=== PATIENT | male | born 1960 | race Caucasian/White ===

== ENCOUNTER → 2017-10-31 16:12 | Outpatient (CLI) | payer SELFPAY ==
[2017-10-31 17:26] LABS: Add Manual Diff / Slide Review NO; Basophils Percent Auto 0.5 % (0-2); Eosinophils Percent Auto 2.6 % (2-4); Hematocrit 40.1 % (41-53); Hemoglobin 13.7 g/dL (13.5-17.5); Lymphocytes Percent Auto 32.1 % (25-40); Mean Corpuscular HGB Conc 34.2 % (30-36); Mean Corpuscular Volume 96.5 fL (80-100); Monocytes Percent Auto 7.4 % (3-14); Neutrophils Absolute Auto 5000 /uL (3000-5900); Neutrophils Percent Auto 57.4 % (50-75); Platelet Count 231 X10^3/uL (150-400); Red Blood Cell Count 4.15 X10^6/uL (4.5-5.9); Red Cell Distribution Width 13.1 % (11.6-14.8); White Blood Cell Count 8.7 X10^3/uL (4.5-11.0)
[2017-10-31 17:34] LABS: HEMOLYSIS < 15 (0-50); Iron 106 ug/dL (49-181)
[2017-10-31 17:36] LABS: Alanine Aminotransferase 29 IU/L (21-72); Albumin 4.7 g/dL (3.5-5.0); Albumin Globulin Ratio 1.6 (1.0-2.8); Alkaline Phosphatase 78 U/L (38-126); Aspartate Aminotransferase 21 IU/L (17-59); BUN Creatinine Ratio 11.1 (6-22); Bilirubin Total 0.4 mg/dL (0.2-1.3); Blood Urea Nitrogen 10 mg/dL (9-20); Calcium 9.9 mg/dL (8.4-10.2); Carbon Dioxide 29 mmol/L (22-32); Chloride 101 mmol/L (98-107); Cholesterol 133 mg/dL (140-199); Estimated Glomerular Filt Rate > 60.0 mL/min (>60); Globulin 2.9 g/dL (1.7-4.1); Glucose 102 mg/dL (70-100); HDL Cholesterol 39 mg/dL (40-60); HEMOLYSIS < 15 (0-50); LDL Cholesterol Calculated 76 mg/dL (<100); Sodium 143 mmol/L (137-145); Total Protein 7.6 g/dL (6.3-8.2); Triglycerides 91 mg/dL (35-150)
[2017-10-31 17:37] LABS: Potassium 5.6 mmol/L (3.4-5.1)
[2017-10-31 17:45] LABS: Percent Iron Saturation 31 % (20-50); Total Iron Binding Capacity 345 ug/dL (261-462); Transferrin 252 mg/dL (206-381)
[2017-10-31 18:05] LABS: Prostate Specific Antigen Scrn 0.661 ng/mL (0.1-4.0)
== END ==
PROVIDERS: PCP Family Medicine; Visit Provider Family Medicine
DX: R42 Dizziness and giddiness (principal); I10 Essential (primary) hypertension
CPT/HCPCS: 36415; 80053; 80061; 83540; 83550; 84443; 85025; G0103

== ENCOUNTER → 2018-08-14 09:54 | Outpatient (CLI) | payer SELFPAY | PROVIDERS: Family Provider Family Medicine; PCP Family Medicine; Visit Provider Physician Assistant ==

== ENCOUNTER 2018-09-08 17:47 | Emergency (ER) | payer OTHER, SELFPAY ==
[2018-09-08 17:53] VITALS: BP 110/70; PULSE 88; RESP 20; TEMP 36.6; O2SAT 97
--- NOTE | 2018-09-08 19:08 | ED_ITS ---
HPI - Back Pain/Injury General Chief Complaint: Back Pain/Injury Stated Complaint: Pulled a muscle in his right leg Time Seen by Provider: 09/08/18 19:08 Source: patient Mode of arrival: wheelchair Limitations: no limitations History of Present Illness HPI Narrative: Patient is a 58-year-old male here for evaluation of right-sided leg/hip pain. He has been seen in the walk-in clinic. He was told by his chiropractor that he had an iliopsoas tear. He was given prednisone and Flexeril and Fioricet by the walk-in clinic. He states these have not been helping his symptoms. No fevers. No new symptoms. Related Data Previous Rx's Medication Instructions Recorded albuterol sulfate HFA 90 1 puff INHALATION Q6H #18 gram 11/04/17 mcg/actuation aerosol inhaler atorvastatin 10 mg tablet 10 mg PO HS #90 tab 11/04/17 diltiazem CD 120 mg 240 mg PO QDAY #180 cap 11/04/17 capsule,extended release 24 hr lisinopril 10 mg tablet 20 mg PO QDAY #180 tab 11/04/17 sumatriptan 50 mg tablet 50 mg PO PRN PRN #14 tab 11/04/17 casilqjdzu-klsnclussrnvk-ifkzzhtx 1 cap PO Q4-6H PRN #30 cap 09/06/18 50 mg-300 mg-40 mg capsule cyclobenzaprine 10 mg tablet 10 mg PO BEDTIME #30 tab 09/06/18 prednisone 10 mg tablet See Rx Instructions PO DAILY #15 09/06/18 tab hydrocodone-acetaminophen [Vicodin] 1 tab PO Q4-6H PRN #10 tab 09/08/18 meloxicam [Mobic] 7.5 mg PO BID PRN #30 tab 09/08/18 oxycodone-acetaminophen [Percocet] 1 tab PO Q4-6H PRN #10 tab 09/08/18 Allergies Allergy/AdvReac Type Severity Reaction Status Date / Time codeine Allergy Intermediate HIVES Verified 09/06/18 12:10 omeprazole Allergy Intermediate HIVES Verified 09/06/18 12:10 venom-honey bee Allergy Mild SWELLING Verified 09/06/18 12:10 [bee venom (honey bee)] Review of Systems Constitutional Denies fever(s) and Denies headache(s) ENT Ears, Nose, Mouth, and Throat: Denies dizziness and Denies headache(s) Cardiovascular Denies chest pain and Denies dyspnea Respiratory Denies dyspnea Gastrointestinal Gastrointestinal: Denies abdominal pain, Denies nausea and Denies vomiting Genitourinary Denies dysuria, Denies urinary frequency and Denies urinary incontinence Musculoskeletal Reports back pain, Reports myalgias, Reports arthralgias (Right hip) and Reports radiating pain into limb (Right lower extremity) Integumentary/Breasts Denies rash Neurologic Denies dizziness and Denies headache(s) Hematologic/Lymphatic Denies easy bleeding and Denies easy bruising [facility] Medical History Anxiety (Chronic ~2009) Asthma (Chronic) Depression (Chronic ~2009) Fast heart beat (Chronic ~2013) Foot pain (Chronic ~2009) Fractures (Chronic ~2007) GERD (gastroesophageal reflux disease) (Chronic) Genital herpes (Chronic ~1999) Hay fever (Chronic) Headache (Chronic ~1982) Hepatitis C (Chronic ~2008) Migraines (Chronic ~1982) Peptic ulcer disease (Chronic) Seasonal allergies (Chronic) Shoulder pain (Chronic) Surgical History (Updated 11/03/17 @ 23:35 by Treasure Bello) Status post colonoscopy (~10/2008) Social History Smoking Status: Former smoker Social History Smoking Status: Former smoker Exam Initial Vital Signs Initial Vital Signs: Vital Signs Temperature 97.8 F 09/08/18 17:53 Pulse Rate 88 09/08/18 17:53 Respiratory Rate 20 09/08/18 17:53 Blood Pressure 110/70 09/08/18 17:53 Pulse Oximetry 97 09/08/18 17:53 Const General: well developed, well groomed and No acute distress Orientation: alert, awake and oriented x3 HENMT Head: normal to inspection and normocephalic Resp Effort & Inspection: normal respiratory effort Cardio Rate: bradycardic Back/Spine/Pelvis Thoracic/Lumbar Spine: No thoracic spinal tenderness, lumbar spinal tenderness and straight leg raise positive Sacroiliac Joints: tender to palpation right Skin Lesions: no lesions Rashes: no rashes Neuro General: alert, awake and oriented x3 Cognition: normal cognition Speech: speech normal Extrem General: normal to inspection and capillary refill normal Course Orders Ordered: Discontinued Medications Hydromorphone HCl (Dilaudid) 1 mg IM NOW ONE Stop: 09/08/18 19:23 Last Admin: 09/08/18 19:40 Dose: 1 mg Vital Signs - 8 hr 09/08/18 17:53 Temperature 97.8 F Pulse Rate 88 Respiratory Rate 20 Blood Pressure 110/70 Pulse Oximetry 97 MDM - Back Pain/Injury MDM Narrative Medical decision making narrative: Patient has no red flag symptoms concerning for cauda equina, fracture, epidural hematoma or abscess. He is currently on steroids. Was given shot of pain medication here in the emergency department. Will switch his Fioricet to hydrocodone. The oxycodone prescription was not given to him it was torn up and thrown away. He preferred the hydrocodone. Instructed he needs to contact his primary doctor about indications for referral to get an MRI in to see Orthopedics. He is given return precautions. He expressed understanding and agreement with plan. Discharge Plan Departure Patient Disposition: Home Clinical Impression: Radicular pain of lower extremity Back pain Qualifiers: Back pain location: back pain in unspecified location Chronicity: acute Back pain laterality: right Qualified Code(s): M54.9 - Dorsalgia, unspecified Discharge Date/Time: 09/08/18 20:23 Interventions: ED Discharge Assessment Last Done: 09/08/18 20:22 Instructions: Back Pain (Alternative Therapy), DI for Back Pain With Sciatica, Activity May Be Better then Rest for Low Back Pain Recovery Activity Restrictions/Additional Instructions: Any further pain management needs to come from either your primary provider or from a hand paint mixer. Contact your primary provider on Tuesday morning. You can also contact the [facility] at [phone]. I recommend that you stay as active as possible. Stop taking the Fioricet that you were given at the walk-in clinic. I do recommend you continue with the prednisone. You can take the Flexeril/cyclobenzaprine as needed if it is helping you Prescriptions: New meloxicam [Mobic] 7.5 mg tablet 7.5 mg PO BID PRN (Reason: pain) Qty: 30 RF: 0 oxycodone-acetaminophen [Percocet] 5-325 mg tablet 1 tab PO Q4-6H PRN (Reason: pain) Qty: 10 RF: 0 hydrocodone-acetaminophen [Vicodin] 5-300 mg tablet 1 tab PO Q4-6H PRN (Reason: pain) Qty: 10 RF: 0 No Action cyclobenzaprine 10 mg tablet 10 mg PO BEDTIME Qty: 30 RF: 0 prednisone 10 mg tablet See Rx Instructions PO DAILY Qty: 15 RF: 0 nuyzqqysod-nofxbindeqvtz-wwud [Fioricet] 50-300-40 mg capsule 1 cap PO Q4-6H PRN (Reason: pain) Qty: 30 RF: 0 atorvastatin [Lipitor] 10 mg tablet 10 mg PO HS Qty: 90 RF: 3 diltiazem HCl 120 mg capsule,extended release 24hr 240 mg PO QDAY Qty: 180 RF: 3 lisinopril 10 mg tablet 20 mg PO QDAY Qty: 180 RF: 3 sumatriptan succinate [Imitrex] 50 mg tablet 50 mg PO PRN PRN (Reason: headache) Qty: 14 RF: 3 albuterol sulfate 90 mcg/actuation HFA aerosol inhaler 1 puff INHALATION Q6H Qty: 18 RF: 5 Referrals: Charanjit Borrreo MD [Primary Care Provider] - Stand Alone Forms: Work Release Note
[2018-09-08] MEDS: HYDROMORPHONE 1 MG INJ IM (19:40)
--- NOTE | 2018-09-08 19:46 | PC.NURSE ---
Pt laying on left side on stretcher in obvious discomfort. Pt has lidocaine patch aplied to right upper buttock and stats only helped a little bit. Pt states he does not recall an event that started the pain. He states the pain has been slowly increasing to a 15/10 pain today.
[2018-09-08 19:53] VITALS: BP 92/61; PULSE 58; RESP 16; O2SAT 95
== END 2018-09-08 20:23 | disposition home or self-care (01) ==
PROVIDERS: Emergency Provider Emergency Medicine; Family Provider Family Medicine; PCP Family Medicine
DX: M54.9 Dorsalgia, unspecified (principal); M79.605 Pain in left leg
CPT/HCPCS: 96372; 99282; 99283; J1170

== ENCOUNTER → 2018-09-11 13:01 | Outpatient (CLI) | payer OTHER, SELFPAY ==
--- NOTE | 2018-09-11 13:16 | DI.RAD.S_ITS ---
PROCEDURE: XR LUMBAR SPINE 2-3V INDICATIONS: pain TECHNIQUE: 3 views of the lumbar spine were acquired. COMPARISON: [facility], [place], ABDOMEN/PELVIS WITH CONTRAST, 08/29/2014, 10:47. FINDINGS: Bones: 5 cic-cyl-jzxhimd vertebrae are present. There is normal bony alignment. No vertebral body compression fractures. No suspicious bony lesions. Soft tissues: Overlying bowel gas pattern is normal. No suspicious soft tissue calcifications. IMPRESSION: Mild degenerative disc disease, moderate facet osteoarthritis from L3 inferiorly, no trauma found. No definite spinal or foraminal stenosis is seen. Dictated by: Altaf Tapia M.D. on 09/11/2018 at 13:51 Approved by: Altaf Tapia M.D. on 09/11/2018 at 13:52
--- NOTE | 2018-09-11 13:16 | DI.RAD.S_ITS ---
PROCEDURE: XR HIP W PEL IF DONE RT 2V INDICATIONS: pain TECHNIQUE: AP pelvis with lateral view(s) of the right hip don't go. COMPARISON: None. FINDINGS: Bones: No fractures or dislocations. Pelvic ring appears intact. No suspicious bony lesions. Soft tissues: The visualized bowel gas pattern is normal. No suspicious soft tissue calcifications. IMPRESSION: Mild symmetric hip joint osteoarthritis, no trauma found. Dictated by: Altaf Tapia M.D. on 09/11/2018 at 13:53 Approved by: Altaf Tapia M.D. on 09/11/2018 at 13:54
== END ==
PROVIDERS: PCP Family Medicine; Visit Provider Family Medicine
DX: M54.9 Dorsalgia, unspecified (principal); M51.36 Other intervertebral disc degeneration, lumbar region; M47.816 Spondylosis without myelopathy or radiculopathy, lumbar region; M16.11 Unilateral primary osteoarthritis, right hip
CPT/HCPCS: 72100; 73502

== ENCOUNTER → 2020-05-07 17:26 | Outpatient (CLI) | payer SELFPAY | PROVIDERS: PCP Family Medicine; Visit Provider Family Medicine | DX: L03.90 Cellulitis, unspecified (principal) | CPT/HCPCS: 87070; 87075; 87205 ==

== ENCOUNTER → 2020-11-11 13:29 | Outpatient (CLI) | payer SELFPAY ==
[2020-11-11 14:44] LABS: Add Manual Diff / Slide Review NO; Basophils Absolute Auto 0 /uL (0-100); Basophils Percent Auto 0.5 % (0-2); Eosinophils Absolute Auto 300 /uL (0-450); Eosinophils Percent Auto 3.3 % (2-4); Hematocrit 41.8 % (41-53); Lymphocytes Absolute Auto 2000 /uL (1100-4500); Lymphocytes Percent Auto 23.8 % (25-40); Mean Corpuscular HGB Conc 33.4 % (30-36); Mean Corpuscular Hemoglobin 32.1 PG (26-34); Monocytes Absolute Auto 600 /uL (0-900); Monocytes Percent Auto 6.6 % (3-14); Neutrophils Absolute Auto 5700 /uL (1500-7000); Neutrophils Percent Auto 65.8 % (50-75); Platelet Count 207 X10^3/uL (150-400); Red Blood Cell Count 4.36 X10^6/uL (4.5-5.9); Red Cell Distribution Width 13.5 % (11.6-14.8); White Blood Cell Count 8.6 X10^3/uL (4.5-11.0)
[2020-11-11 15:31] LABS: Alanine Aminotransferase 23 IU/L (<50); Albumin 4.6 g/dL (3.5-5.0); Albumin Globulin Ratio 1.5 (1.0-2.8); Alkaline Phosphatase 74 U/L (38-126); Aspartate Aminotransferase 29 IU/L (17-59); BUN Creatinine Ratio 16.9 (6-22); Bilirubin Total 0.5 mg/dL (0.2-1.3); Blood Urea Nitrogen 12 mg/dL (9-20); Calcium 9.7 mg/dL (8.4-10.2); Carbon Dioxide 25 mmol/L (22-32); Chloride 103 mmol/L (98-107); Cholesterol 168 mg/dL (140-199); Estimated Glomerular Filt Rate > 60.0 mL/min (>60); Glucose 92 mg/dL (80-110); HDL Cholesterol 41 mg/dL (40-60); HEMOLYSIS < 15 (0-50); LDL Cholesterol Calculated 112 mg/dL (<100); Potassium 4.4 mmol/L (3.4-5.1); Sodium 138 mmol/L (137-145); Total Protein 7.6 g/dL (6.3-8.2); Triglycerides 74 mg/dL (35-150)
[2020-11-11 16:08] LABS: Prostate Specific Antigen 1.02 ng/mL (0.10-4.00)
[2020-11-14 19:57] LABS: HEMOLYSIS < 15 (0-50); Iron 113 ug/dL (49-181)
[2020-11-14 20:09] LABS: Percent Iron Saturation 37 % (20-50); Total Iron Binding Capacity 307 ug/dL (261-462); Transferrin 234 mg/dL (206-381)
[2020-11-14 20:33] LABS: Ferritin 42 ng/mL (18-464)
== END ==
PROVIDERS: PCP Family Medicine; Referring Provider Family Medicine; Visit Provider Family Medicine
DX: B19.20 Unspecified viral hepatitis C without hepatic coma (principal); I10 Essential (primary) hypertension; B18.2 Chronic viral hepatitis C
CPT/HCPCS: 36415; 80053; 80061; 82728; 83540; 83550; 84153; 85025

== ENCOUNTER → 2021-02-23 09:53 | Outpatient (CLI) | payer OTHER, SELFPAY ==
--- NOTE | 2021-02-23 09:56 | DI.RAD.S_ITS ---
PROCEDURE: XR HAND LT MIN 3V INDICATIONS: possible dislocation TECHNIQUE: 3 views of the hand(s) acquired. COMPARISON: None. FINDINGS: Bones: No fractures or dislocations. Mild osteoarthritic changes are noted throughout interphalangeal joints. Carpal bones are normally aligned. No suspicious bony lesions. Soft tissues: No suspicious soft tissue calcifications. IMPRESSION: No fracture or dislocation is seen. Mild osteoarthritis throughout interphalangeal joints. Dictated by: Madi Villalobos M.D. on 02/23/2021 at 10:16 Approved by: Madi Villalobos M.D. on 02/23/2021 at 10:16
== END ==
PROVIDERS: PCP Family Medicine; Referring Provider Nurse Practitioner Family; Visit Provider Nurse Practitioner Family
DX: M79.89 Other specified soft tissue disorders (principal); M19.042 Primary osteoarthritis, left hand
CPT/HCPCS: 73130

== ENCOUNTER → 2021-02-25 07:41 | Outpatient (CLI) | payer OTHER, SELFPAY | PROVIDERS: PCP Family Medicine; Referring Provider Family Medicine; Visit Provider Family Medicine | DX: K31.84 Gastroparesis (principal); R10.9 Unspecified abdominal pain; Z53.9 Procedure and treatment not carried out, unspecified reason ==

== ENCOUNTER → 2021-03-09 10:16 | Outpatient (CLI) | payer OTHER, SELFPAY ==
[2021-03-09 10:54] LABS: COVID19 -Nasal RAPID Negative (Negative)
== END ==
PROVIDERS: PCP Family Medicine; Visit Provider Surgery
DX: Z01.812 Encounter for preprocedural laboratory examination (principal); Z20.822 Contact with and (suspected) exposure to COVID-19
CPT/HCPCS: 87635; C9803

== ENCOUNTER 2021-03-10 12:56 | Day surgery (SDC) | payer OTHER, SELFPAY ==
[2021-03-06 11:43] VITALS: BMI 22.1
[2021-03-10] VITALS (15 sets, daily range): BP systolic 92–156; BP diastolic 56–96; PULSE 51–98; RESP 11–24; TEMP 36.1–36.9; O2SAT 94–99; BMI 21.6
--- NOTE | 2021-03-10 13:30 | PM.PREOP ---
Pre-operative Note Interval Note History & Physical reviewed/Exam performed by Physician: Yes Changes to H&P: No
[2021-03-10] MEDS: LACTATED RINGERS 1,000 ML 42 ML IV (13:32)
[2021-03-10] MEDS: CEFAZOLIN 1 GM VIAL 2 GM IV (13:47)
--- NOTE | 2021-03-10 14:02 | SUR.OPER ---
Supine on padded OR bed, head on pillow, arms secured on padded arm boards at <90 degrees abduction, legs uncrossed, safety belt at thigh, tape over blanket over lower legs.
[2021-03-10] MEDS: BUPIVACAINE 0.25% (PF) VIAL 30 ML INJ (14:07)
--- NOTE | 2021-03-10 14:41 | P.OP_ITS ---
Operative Date/Time/Diagnoses Date of procedure: 03/10/21 Time of procedure: 14:42 Pre-op diagnosis: reducible right inguinal hernia Post-op diagnosis: same Procedure & Clinicians Procedure: open right inguinal hernia repair Same procedure as scheduled: Yes Indications: reducible right inguinal hernia Surgeon: Kolby Logan Yes if Unassisted: Yes Anesthesia Type: General Operative Notes Findings: direct floor defect. No indirect hernia Specimen(s): none sent Estimated Blood Loss (mL): 10 Procedure in detail: The patient was placed supine on the table and bilateral lower extremity compression devices were applied. Anesthesia was induced they were intubated with an LMA and received 2g of Ancef. A time-out was performed. They were prepped and draped in sterile fashion. The right external inguinal ring and the anterior superior iliac crest were identified and marked. 1 finger breath above the inguinal ligament the skin was infiltrated with 0.25% bupivacaine. The skin incision was made here and the subcutaneous tissues were divided with electrocautery exposing the external oblique aponeurosis which was then opened along the direction of its fibers. Using blunt dissection the internal oblique aporneurosis was from the external oblique upper leaflet to identify the iliohypogastric nerve. Using a kittner the cord was carefully dissected away from the inguinal canal adjacent to the pubic tubercle. The cord including the vas deferens, testicular bloody supply, ilioguinal and genital nerve were encircled with a [place] drain. A direct floor defect was identified and it was reduced into the abdomen and the internal oblique aporneuorsis was approximated to the inguinal ligament with Ethibond suture to reapproximate the floor over a plug of mesh. The cremasteric fibers surrounding the cord were divided using electrocautery adjacent to the internal ring.. The vas deferens and the testicular vessels were preserved and protected. There was no indirect hernia. I selected a 7x 15 cm lightweight Pro Loop hernia mesh. The inferior medial aspect of the mesh was anchored to insertion of the rectus muscle to the pubic tubercle such that there was approximately 2 cm of tubercle overlap with Ethibond and then was run continuously along the inferior edge of the mesh to the shelving edge of the inguinal ligament. Interrupted 3 0 Vicryl suture was used to anchor the superior aspect of the mesh to the conjoined tendon in several places. The tails were then reapproximated loosely around the spermatic cord. The tails of the mesh were then tucked under the external oblique aponeurosis. The repair was checked for hemostasis. The wound was irrigated with sterile saline. The external oblique aponeurosis was reapproximated in a running fashion using 3 0 Vicryl. The subcutaneous tissues were reapproximated with 3 0 Vicryl skin closed with 4 0 Monocryl followed by the application of Dermabond. At the end of the operation I ensured that both testicles were within the scrotum. The sponge instrument count at the end operation was correct. The patient emerged from anesthesia was extubated and transferred to the postoperative care unit in stable condition. A total of 30 ml of of 0.25% bupivicaine was used to infiltrate the skin. Complications: none Post-operative Condition: stable Disposition: same day surgery
[2021-03-10] MEDS: ONDANSETRON 4 MG/2 ML INJ IV (15:19)
[2021-03-10] MEDS: OXYCODONE IR 5 MG TABLET PO ×3 (15:26→22:37)
--- NOTE | 2021-03-10 17:31 | SUR.PHASEII ---
S.O. called at 1700 to give her update on pt the delay is waiting for spinal to wear off.
[2021-03-10] MEDS: ACETAMINOPHEN 325 MG TABLET 650 MG PO (22:38)
--- NOTE | 2021-03-11 00:03 | PC.NURSE ---
admit/evening shift note- Patient arrived to room via wheelchair from PACU. admit questions done, medications reviewed, physical assessment done, and skin check completed. Patient oriented to bed and bed controls, room, lights, bathroom, and call werner/tv remote. safety measures in place. call werner withi reach. will continue to monitor.
[2021-03-11 00:37] VITALS: BP 117/71; PULSE 56; RESP 16; TEMP 36.4; O2SAT 98
[2021-03-11 06:35] VITALS: BP 131/81; PULSE 62; RESP 16; TEMP 36.3; O2SAT 97
[2021-03-11 08:00] VITALS: BP 119/69; PULSE 61; RESP 16; TEMP 36.3; O2SAT 96
[2021-03-11] MEDS: ONDANSETRON 4 MG/2 ML INJ IV (09:18)
--- NOTE | 2021-03-11 10:55 | PC.NURSE ---
Addendum entered by Jesica Auguste R.N. 03/11/21 11:16: pt declined to wait for po zofran order and reported he just has refilled reglan at home that he can use if he beomes nauseated- reviewed all d/c and post op plans including post op appt and wound care- all questions by he and his spouse have been answered to their satisfaction and d/c'd at this time Original Note: removed iv access in preparation to be d/c'd - reports no further nausea/vomiting and primary nurse Stella calling to obtain po order for zofran as an outpt- pt and spouse awaiting dc
== END 2021-03-11 11:18 | disposition home or self-care (01) ==
LOC: OR 13:34 → AC 19:47
PROVIDERS: PCP Family Medicine; Referring Provider Surgery; Visit Provider Surgery
PROC: (CPT 49505; principal; 2021-03-10 14:45)
DX: K40.90 Unilateral inguinal hernia, without obstruction or gangrene, not specified as recurrent (principal); I10 Essential (primary) hypertension; J45.909 Unspecified asthma, uncomplicated; K21.9 Gastro-esophageal reflux disease without esophagitis
CPT/HCPCS: 49505; 82962; C1781; G0378; J0690; J2250; J2405; J3010

== ENCOUNTER → 2021-04-24 09:14 | Outpatient (CLI) | payer OTHER, SELFPAY ==
[2021-04-02 11:30] VITALS: BMI 21.6
[2021-04-24 10:40] LABS: COVID19 -Nasal RAPID Negative (Negative)
== END ==
PROVIDERS: PCP Family Medicine; Visit Provider Surgery
DX: Z01.812 Encounter for preprocedural laboratory examination (principal); Z20.822 Contact with and (suspected) exposure to COVID-19
CPT/HCPCS: 87635; C9803

== ENCOUNTER 2021-04-27 06:50 | Day surgery (SDC) | payer OTHER, SELFPAY ==
[2021-03-10 19:48] VITALS: BMI 21.6
[2021-04-02 11:30] VITALS: BMI 21.6
[2021-04-27] VITALS (9 sets, daily range): BP systolic 108–143; BP diastolic 65–86; PULSE 61–82; RESP 12–14; TEMP 36.8–37.3; O2SAT 92–99; BMI 22.8
[2021-04-27 07:44] LABS: COVID19 -Nasal RAPID Negative (Negative)
[2021-04-27] MEDS: LACTATED RINGERS 1,000 ML 200 ML IV (07:47)
--- NOTE | 2021-04-27 08:09 | P.HP_ITS ---
History of Present Illness History of Present Illness Date Patient Seen: 04/27/21 Time Patient Seen: 08:09 Chief complaint: SCREENING COLONOSCOPY Narrative: The patient presents for colorectal sreening. Previous colonoscopy 10 years ago normal. No personal or family history of colon cancer. On further history denies any recent gastrointestinal symptoms. No nausea, vomiting, abdominal pain, loss of appetite, unexplained weight loss, change in bowel habits, di arrhea, constipation, melena, hematochezia, or bright red blood per rectum. Patient History Medical History Anxiety (~2009) Asthma Cellulitis Depression (~2009) Fast heart beat (~2013) Foot pain (~2009) Fractures (~2007) Gastroparesis Genital herpes (~1999) GERD (gastroesophageal reflux disease) Hay fever Headache (~1982) Hepatitis C (~2008) Inguinal hernia Migraines (~1982) Neuropathy Peptic ulcer disease Seasonal allergies Shoulder pain Stomach ulcer Surgical History History of surgery (1997) Status post colonoscopy (~10/2008) Family & Social History Social History: household members significant other Tobacco & Substance use: Tobacco type cigarettes Smoking Status Former smoker alcohol intake current alcohol intake frequency holiday/special occasion Substance Use Type marijuana Meds Home Medications and Allergies Home Medications Medication Instructions Recorded Confirmed Type sumatriptan succinate 50 mg tablet 50 mg PO PRN PRN #14 tab 11/04/17 04/27/21 Rx (Imitrex) albuterol sulfate 90 mcg/actuation 1 puff INHALATION Q6H #18 gram 03/26/20 04/27/21 Rx aerosol inhaler atorvastatin 10 mg tablet (Lipitor) 10 mg PO HS #90 tab 12/02/20 04/27/21 Rx diltiazem HCl 240 mg capsule,24 240 mg PO DAILY #90 cap 12/02/20 04/27/21 Rx hr,extended release lisinopril 20 mg tablet 20 mg PO DAILY #90 tab 12/02/20 04/27/21 Rx metoclopramide HCl 10 mg tablet 10 mg PO Q6H PRN #30 tab 02/03/21 04/27/21 Rx (Reglan) polyethylene glycol 3350 17 17 g PO DAILY #238 g 02/03/21 04/08/21 Rx gram/dose oral powder (Miralax) naproxen sodium 220 mg tablet 220 mg PO PRN PRN 04/27/21 04/27/21 History (Aleve) pregabalin 100 mg capsule 100 mg PO BID 04/27/21 04/27/21 History Allergies Allergy/AdvReac Type Severity Reaction Status Date / Time venom-wasp Allergy Severe swelling Verified 04/27/21 07:12 codeine Allergy Intermediate HIVES Verified 04/27/21 07:12 omeprazole Allergy Intermediate HIVES Verified 04/27/21 07:12 venom-honey bee Allergy Mild SWELLING Verified 04/27/21 07:12 [bee venom (honey bee)] Exam Vital Signs (past 8 hours): - 04/27/21 07:49 Temperature 99.1 F Pulse Rate 82 Respiratory Rate 14 Blood Pressure 126/73 Pulse Oximetry 99 Oxygen Delivery Method Room Air Narrative Exam Narrative: Constitutional-he is oriented to person, place and time. No apparent distress Cardiovascular- regular rate, no peripheral edema Pulmonary-unlabored respiratory effort, no audible wheezing Abdominal-soft, non-tender, non-distended Musculoskeletal-no cyanosis or clubbing Neurological-nonfocal, normal strength throughout, normal gait. Skin-warm and dry Objective Labs Labs: Laboratory Results - last 24 hr 04/27/21 07:24 SARS-CoV-2 (PCR) Negative Assessment & Plan Assessment and plan (1) Screening for colon cancer: Status: Acute Assessment & Plan narrative: The patient requires colorectal screening and colonoscopy is recommended. Technical details were discussed. Risks, benefits, alternatives explained. Risks including but not limited to myocardial infarction, aspiration, bleeding, pain, missed lesion, incomplete examination, need for further radiographic studies, colonic perforation, and need for major abdominal surgery were discussed. All questions were answered to their satisfaction, and they are in agreement with this plan. Time Spent With Patient Critical Care time: I spent a total of [] minutes of critical care time on this patient's care toda y; this time is exclusive of procedural time.
[2021-04-27] MEDS: fentaNYL 250 MCG/5 ML INJ IV (08:26)
[2021-04-27] MEDS: MIDAZOLAM 5 MG/5 ML VIAL IV (08:27)
--- NOTE | 2021-04-27 08:40 | PM.OP.COLON ---
Operative Date/Time/Diagnoses Date of procedure: 04/27/21 Time of procedure: 08:40 Pre-op diagnosis: screening colonoscopy Post-op diagnosis: same Procedure & Clinicians Study performed: Colonoscopy Same procedure as scheduled: Yes Indications: Screening Surgeon: Kolby Guillory Procedure Notes Procedure in detail: Medications: Conscious sedation using 6mg IV midazolam and 200mcg IV of fentanyl The history and physical was performed/updated and the patient is ASA class is 2. The procedure was discussed in detail with the patient. Potential risks complications including infection, bleeding, missed diagnosis, perforation, need for surgery, and were explained. Their questions were answered and informed consent was obtained. Patient was brought to the procedure room and placed standard monitoring equipment. The patient's vital signs were monitored continuously throughout the entire procedure. Prior to starting time-out was performed. The patient was placed in the left lateral recumbent position. Procedural sedation was administered. Examination began with a thorough inspection of the perianal area there was no evidence of fissures, fistulae, external hemorrhoids or cutaneous malignancy. The colonoscopy scope was then placed into the anal canal and was advanced to the cecum, which was identified by the ileocecal valve, the appendiceal orifice and the confluence of the taenia. The scope was then slowly withdrawn examining colon thoroughly in all directions, irrigating it of any residual stool. FINDINGS 1. No masses or polyps 2. Grade 2 internal hemorrhoids The patient tolerated the procedure well. They will be discharged once criteria are met. The prep was of good/excellent quality. The withdrawl time was 6minutes. The sedation time was 19 minutes. Specimen(s): none sent Complications: none Impression: Normal colonoscopy Post-procedure Recommendations: Colonoscopy in 10 years Disposition: same day surgery
--- NOTE | 2021-04-27 08:53 | SUR.PREOP ---
0715 Dr Guillory notified of patient with cold like symptoms for 5 days with slight sore throat, runny nose and left side sinus headache. Covid negative from 04/24 and pt with no known covid contacts and is vaccinated. See order for rapid covid.
--- NOTE | 2021-04-27 09:22 | SUR.PHASEII ---
Report from Rocío Rn at bedside. Pt to OPD 7. Awakens to voice, falls asleep with juice in hand. Resting at this time, Denies pain.
--- NOTE | 2021-04-27 09:50 | SUR.PHASEII ---
Nausea while getting dressed. Aroma therapy applied, cool wash rag to back of neck.
--- NOTE | 2021-04-27 10:15 | SUR.PHASEII ---
25 ml emesis prior to discharge. Pt states nausea mild upon discharge.
== END 2021-04-27 10:12 | disposition home or self-care (01) ==
PROVIDERS: PCP Family Medicine; Referring Provider Surgery; Visit Provider Surgery
PROC: 0DJD8ZZ Inspection of Lower Intestinal Tract, Via Natural or Artificial Opening Endoscopic (ICD-10-PCS; CPT 45378; principal; 2021-04-27 07:45)
DX: Z12.11 Encounter for screening for malignant neoplasm of colon (principal); Z20.822 Contact with and (suspected) exposure to COVID-19; K64.1 Second degree hemorrhoids
CPT/HCPCS: 45378; 87635; 99152; J2250; J3010

== ENCOUNTER 2021-08-16 12:47 | Emergency (ER) | payer SELFPAY ==
[2021-04-02 11:30] VITALS: BMI 21.6
[2021-08-16 13:20] VITALS: BP 142/84; PULSE 78; RESP 14; TEMP 36.7; O2SAT 98; BMI 22.8
[2021-08-16 13:39] LABS: Add Manual Diff / Slide Review NO; Basophils Absolute Auto 100 /uL (0-100); Basophils Percent Auto 0.6 % (0-2); Eosinophils Absolute Auto 500 /uL (0-450); Eosinophils Percent Auto 4.5 % (2-4); Hematocrit 41.5 % (41-53); Hemoglobin 14.2 g/dL (13.5-17.5); Lymphocytes Absolute Auto 1600 /uL (1100-4500); Lymphocytes Percent Auto 13.9 % (25-40); Mean Corpuscular HGB Conc 34.1 % (30-36); Mean Corpuscular Hemoglobin 32.6 PG (26-34); Mean Corpuscular Volume 95.4 fL (80-100); Monocytes Absolute Auto 700 /uL (0-900); Monocytes Percent Auto 6.5 % (3-14); Neutrophils Absolute Auto 8400 /uL (1500-7000); Neutrophils Percent Auto 74.5 % (50-75); Platelet Count 231 X10^3/uL (150-400); Red Blood Cell Count 4.35 X10^6/uL (4.5-5.9); Red Cell Distribution Width 13.2 % (11.6-14.8); White Blood Cell Count 11.3 X10^3/uL (4.5-11.0)
--- NOTE | 2021-08-16 13:39 | ED.GENADULT ---
HPI - General Adult General Chief complaint: Abdominal Pain Stated complaint: Upper/lower abd pain, hx of hernia surgery 03/12 Time Seen by Provider: 08/16/21 13:13 Source: patient Mode of arrival: Ambulatory History of Present Illness HPI narrative: Patient is a 60-year-old male here for evaluation of right lower quadrant abdominal pain. Patient had hernia surgery performed in February of last year. States that afterwards he has had some residual numbness in the area but the discomfort improved afterwards. He states that this morning he was at his normal state health. 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 He had immediate discomfort in his right lower quadrant. He states that he felt like his abdominal muscles cramped up and did hurt in his upper abdomen but that seems to have resolved. He can pinpoint the location with a finger. He has no testicular pain although the initially the pain did radiate down to his right testicle. He has not urinated since the onset of the symptoms. Is in no change in bowel habits. No fevers. No vomiting. Related Data Home Medications Medication Instructions Recorded Confirmed naproxen sodium 220 mg tablet 220 mg PO PRN PRN 04/27/21 04/27/21 (Aleve) pregabalin 100 mg capsule 100 mg PO BID 04/27/21 04/27/21 Previous Rx's Medication Instructions Recorded sumatriptan succinate 50 mg tablet 50 mg PO PRN PRN #14 tab 11/04/17 (Imitrex) albuterol sulfate 90 mcg/actuation 1 puff INHALATION Q6H #18 gram 03/26/20 aerosol inhaler metoclopramide HCl 10 mg tablet 10 mg PO Q6H PRN #30 tab 02/03/21 (Reglan) polyethylene glycol 3350 17 17 g PO DAILY #238 g 02/03/21 gram/dose oral powder (Miralax) diltiazem HCl 240 mg capsule,24 240 mg PO DAILY #90 cap 05/14/21 hr,extended release atorvastatin 10 mg tablet (Lipitor) 10 mg PO HS #90 tab 07/16/21 lisinopril 20 mg tablet 20 mg PO DAILY #90 tab 07/16/21 Allergies Allergy/AdvReac Type Severity Reaction Status Date / Time venom-wasp Allergy Severe swelling Verified 08/16/21 13:25 codeine Allergy Intermediate HIVES Verified 08/16/21 13:25 omeprazole Allergy Intermediate HIVES Verified 08/16/21 13:25 venom-honey bee Allergy Mild SWELLING Verified 08/16/21 13:25 [bee venom (honey bee)] Review of Systems Constitutional Constitutional: Reports as per HPI and Reports system reviewed and no additional complaints, except as documented Gastrointestinal Gastrointestinal: Reports as per HPI and Reports system reviewed and no additional complaints, except as documented Genitourinary Genitourinary: Reports system reviewed and no additional complaints, except as documented and Reports as per HPI Musculoskeletal Musculoskeletal: Reports system reviewed and no additional complaints, except as documented and Reports as per HPI Integumentary/Breasts Skin/Breast: Reports system reviewed and no additional complaints, except as documented and Reports as per HPI Neurologic Neurologic: Reports system reviewed and no additional complaints, except as documented and Reports as per HPI Hematologic/Lymphatic On Anticoagulants: No Patient History Medical History Anxiety (~2009) Asthma Cellulitis Depression (~2009) Fast heart beat (~2013) Foot pain (~2009) Fractures (~2007) Gastroparesis Genital herpes (~1999) GERD (gastroesophageal reflux disease) Hay fever Headache (~1982) Hepatitis C (~2008) Inguinal hernia Migraines (~1982) Neuropathy Peptic ulcer disease Seasonal allergies Shoulder pain Stomach ulcer Surgical History History of surgery (1997) Status post colonoscopy (~10/2008) Social History household members: significant other Smoking Status: Former smoker alcohol intake: current Smoking Status: Former smoker alcohol intake frequency: holidays/special occasions only Substance Use Type: marijuana Exam Initial Vital Signs Initial Vital Signs: Vital Signs Temperature 98.1 F 08/16/21 13:20 Pulse Rate 78 08/16/21 13:20 Respiratory Rate 14 08/16/21 13:20 Blood Pressure 142/84 H 08/16/21 13:20 Pulse Oximetry 98 08/16/21 13:20 HENMT Head: normal to inspection and normocephalic Resp Effort & Inspection: normal respiratory effort Cardio Rate: regular rate GI Inspection: normal to inspection, no edema and non-distended Palpation: soft, No firm, No guarding, No hernia and tender (Right lower abdomen over his surgical scar) External: normal external exam and circumcised Penis: normal penis Scrotum: scrotum normal, not edematous, not erythematous, no inguinal hernias, no masses and no scrotal swelling Testes: normal and testicular lie normal Skin Other: Well-healed surgical scar inguinal region consistent with stated surgical history Neuro General: patient alert, patient awake and patient oriented x3 Speech: speech normal Gait: normal gait Extrem General: normal to inspection and capillary refill normal Psych Appearance: grossly normal and well kempt Course Orders Ordered: ED Orders 08/16/21 13:24 Consult to [facility] - [employer] Room Attendant Stat 08/16/21 13:27 Complete Blood Count AUTO DIFF Stat Comprehensive Metabolic Panel Stat Lipase Stat Vital Signs Vital signs: Vital Signs - 8 hr 08/16/21 13:20 Temperature 98.1 F Pulse Rate 78 Respiratory Rate 14 Blood Pressure 142/84 H Pulse Oximetry 98 Medical Decision Making Lab Data Lab results reviewed: Yes I reviewed the patient's lab results. Result diagrams: 08/16/21 13:27 08/16/21 13:27 Labs: Lab Results 08/16/21 08/16/21 Range/Units 13:27 13:27 WBC 11.3 H (4.5-11.0) X10^3/uL RBC 4.35 L (4.5-5.9) X10^6/uL Hgb 14.2 (13.5-17.5) g/dL Hct 41.5 (41-53) % MCV 95.4 (80-100) fL MCH 32.6 (26-34) PG MCHC 34.1 (30-36) % RDW 13.2 (11.6-14.8) % Plt Count 231 (150-400) X10^3/uL Neut % (Auto) 74.5 (50-75) % Lymph % (Auto) 13.9 L (25-40) % [place] % (Auto) 6.5 (3-14) % Eos % (Auto) 4.5 H (2-4) % Baso % (Auto) 0.6 (0-2) % Neut # (Auto) 8400 H (2173-0208) /uL Lymph # (Auto) 1600 (4591-4810) /uL [place] # (Auto) 700 (0-900) /uL Eos # (Auto) 500 H (0-450) /uL Baso # (Auto) 100 (0-100) /uL Sodium 139 (137-145) mmol/L Potassium 4.4 (3.4-5.1) mmol/L Chloride 108 H (98-107) mmol/L Carbon Dioxide 25 (22-32) mmol/L BUN 12 (9-20) mg/dL Creatinine 0.74 (0.66-1.25) mg/dL Estimated GFR > 60.0 (>60) mL/min BUN/Creatinine Ratio 16.2 (6-22) Glucose 105 (80-110) mg/dL Calcium 9.0 (8.4-10.2) mg/dL Total Bilirubin 0.5 (0.2-1.3) mg/dL AST 22 (17-59) IU/L ALT 16 (<50) IU/L Alkaline Phosphatase 73 (38-126) U/L Total Protein 7.7 (6.3-8.2) g/dL Albumin 4.6 (3.5-5.0) g/dL Globulin 3.1 (1.7-4.1) g/dL Albumin/Globulin Ratio 1.5 (1.0-2.8) Lipase 59 (23-300) U/L MDM Narrative Medical decision making narrative: Patient has a fairly benign exam. He is very skinny so it is easy to feel his abdominal wall and there is no indication of any inguinal hernia. I suspect that he either hold a stitch or potentially rib some scar tissue in the area. I had discussion with him regarding this. I do feel that we can hold on any CT scans for now. He was given return precautions and follow-up instructions. He expressed understanding and agreement. Discharge Plan Departure Patient Disposition: Home Clinical Impression: Abdominal pain Instructions: DI for Abdominal Pain-Adult Activity Restrictions/Additional Instructions: Continue all of your medications as directed. I have a very high suspicion that the discomfort today is related to tearing of scar tissue from your surgery. Contact your primary doctor for a follow-up. Return to the emergency department for any new or worsening symptoms. Prescriptions: No Action albuterol sulfate 90 mcg/actuation HFA aerosol inhaler 1 puff INHALATION Q6H Qty: 18 2RF Rx Instructions: administer with spacer diltiazem HCl 240 mg capsule,extended release 24 hr 240 mg PO DAILY Qty: 90 1RF atorvastatin [Lipitor] 10 mg tablet 10 mg PO HS Qty: 90 1RF lisinopril 20 mg tablet 20 mg PO DAILY Qty: 90 1RF sumatriptan succinate [Imitrex] 50 mg tablet 50 mg PO PRN PRN (Reason: headache) Qty: 14 3RF metoclopramide HCl [Reglan] 10 mg tablet 10 mg PO Q6H PRN (Reason: nausea and vomiting) Qty: 30 1RF polyethylene glycol 3350 [Miralax] 17 gram/dose powder 17 g PO DAILY Qty: 238 1RF naproxen sodium [Aleve] 220 mg Tablet 220 mg PO PRN PRN (Reason: Pain (Scale Score 1-3)) 0RF pregabalin 100 mg Capsule 100 mg PO BID 0RF Referrals: Hung Latif, [Primary Care Provider] - Stand Alone Forms: Work Release Note
[2021-08-16 13:52] LABS: Alanine Aminotransferase 16 IU/L (<50); Albumin 4.6 g/dL (3.5-5.0); Albumin Globulin Ratio 1.5 (1.0-2.8); Alkaline Phosphatase 73 U/L (38-126); Aspartate Aminotransferase 22 IU/L (17-59); BUN Creatinine Ratio 16.2 (6-22); Bilirubin Total 0.5 mg/dL (0.2-1.3); Blood Urea Nitrogen 12 mg/dL (9-20); Carbon Dioxide 25 mmol/L (22-32); Chloride 108 mmol/L (98-107); Estimated Glomerular Filt Rate > 60.0 mL/min (>60); Globulin 3.1 g/dL (1.7-4.1); Glucose 105 mg/dL (80-110); HEMOLYSIS < 15 (0-50); Lipase 59 U/L (23-300); Potassium 4.4 mmol/L (3.4-5.1); Sodium 139 mmol/L (137-145); Total Protein 7.7 g/dL (6.3-8.2)
[2021-08-16 14:23] VITALS: BP 128/78; PULSE 64; RESP 18; O2SAT 97
== END 2021-08-16 14:26 | disposition home or self-care (01) ==
PROVIDERS: Emergency Provider Emergency Medicine; PCP Family Medicine
DX: R10.31 Right lower quadrant pain (principal)
CPT/HCPCS: 36415; 80053; 83690; 85025; 99283

== ENCOUNTER 2021-11-03 11:09 | Emergency (ER) | payer OTHER, MEDICAID, SELFPAY ==
[2021-04-02 11:30] VITALS: BMI 21.6
[2021-11-03] VITALS (9 sets, daily range): BP systolic 136–206; BP diastolic 82–129; PULSE 43–89; RESP 14–30; TEMP 36.4; O2SAT 97–100; BMI 22.0
--- NOTE | 2021-11-03 11:43 | ED.HA ---
HPI - Headache General Chief Complaint: Headache Stated Complaint: Inner ear swelling, head pain, anxiety Time Seen by Provider: 11/03/21 11:42 Mode of arrival: Ambulatory Related Data Home Medications Medication Instructions Recorded Confirmed gabapentin 600 mg tablet 600 mg PO BID 08/21/21 08/21/21 Previous Rx's Medication Instructions Recorded albuterol sulfate 90 mcg/actuation 1 puff inhalation Q6H #18 grams 09/01/21 aerosol inhaler atorvastatin 10 mg tablet (Lipitor) 10 mg PO HS #90 tabs 09/01/21 diltiazem HCl 240 mg capsule,24 240 mg PO DAILY #90 caps 09/01/21 hr,extended release lisinopril 20 mg tablet 20 mg PO DAILY #90 tabs 09/01/21 sumatriptan succinate 50 mg tablet 50 mg PO PRN PRN headache #14 tabs 10/08/21 (Imitrex) Allergies Allergy/AdvReac Type Severity Reaction Status Date / Time venom-wasp Allergy Severe swelling Verified 11/03/21 11:19 codeine Allergy Intermediate HIVES Verified 11/03/21 11:19 omeprazole Allergy Intermediate HIVES Verified 11/03/21 11:19 venom-honey bee Allergy Mild SWELLING Verified 11/03/21 11:19 [bee venom (honey bee)] Patient History Medical History Anxiety (~2009) Asthma Cellulitis Depression (~2009) Fast heart beat (~2013) Foot pain (~2009) Fractures (~2007) Gastroparesis Genital herpes (~1999) GERD (gastroesophageal reflux disease) Hay fever Headache (~1982) Hepatitis C (~2008) Inguinal hernia Migraines (~1982) Neuropathy Peptic ulcer disease Seasonal allergies Shoulder pain Stomach ulcer Surgical History History of surgery (1997) Status post colonoscopy (~10/2008) Social History household members: significant other Smoking Status: Former smoker alcohol intake: current Smoking Status: Former smoker alcohol intake frequency: holidays/special occasions only Substance Use Type: marijuana and prescription drug Exam Initial Vital Signs Initial Vital Signs: Vital Signs Temperature 97.6 F 11/03/21 11:17 Pulse Rate 77 11/03/21 11:17 Respiratory Rate 15 06/14/22 11:17 Blood Pressure 197/129 H 11/03/21 11:17 Pulse Oximetry 100 11/03/21 11:17 Oxygen Delivery Method 11/03/21 11:17 Course Vital Signs Vital signs: Vital Signs - 8 hr 11/03/21 11:17 Temperature 97.6 F Pulse Rate 77 Respiratory Rate 15 Blood Pressure 197/129 H Pulse Oximetry 100 Oxygen Delivery Method Room Air Discharge Plan Departure Prescriptions: No Action lisinopril 20 mg tablet 20 mg PO DAILY Qty: 90 1RF atorvastatin [Lipitor] 10 mg tablet 10 mg PO HS Qty: 90 1RF albuterol sulfate 90 mcg/actuation HFA aerosol inhaler 1 puff INHALATION Q6H Qty: 18 2RF Rx Instructions: administer with spacer diltiazem HCl 240 mg capsule,extended release 24 hr 240 mg PO DAILY Qty: 90 1RF sumatriptan succinate [Imitrex] 50 mg tablet 50 mg PO PRN PRN (Reason: headache) Qty: 14 3RF Rx Instructions: Take one tablet by mouth at onset of migraine, may take additional 1 tablet in 2 hours if needed. gabapentin 600 mg tablet 600 mg PO BID Referrals: Jorge Christina MD [Primary Care Provider] -
--- NOTE | 2021-11-03 12:26 | DI.CT.S_ITS ---
PROCEDURE: CT HEAD/BRAIN WO CON INDICATIONS: Headache TECHNIQUE: Noncontrast 4.5 mm thick angled axial sections acquired from the foramen magnum to the vertex, with coronal and sagittal reformats. For radiation dose reduction, the following was used: automated exposure control, adjustment of mA and/or kV according to patient size. COMPARISON: None. FINDINGS: Image quality: Excellent. CSF spaces: Basal cisterns are patent. No extra-axial fluid collections. Ventricles are normal in size and shape. Brain: No midline shift. No intracranial masses or hemorrhage. Orozco-white matter interface is normal. Skull and face: Calvarium and visualized facial bones are intact, without suspicious lesions. Sinuses: Visualized sinuses and mastoids are clear. IMPRESSION: No acute intracranial finding. Dictated by: Karl Lock M.D. on 11/03/2021 at 12:56 Approved by: Karl Lock M.D. on 11/03/2021 at 12:58
--- NOTE | 2021-11-03 12:26 | DI.RAD.S_ITS ---
PROCEDURE: XR CHEST 1V INDICATIONS: shortness of breath TECHNIQUE: One view of the chest was acquired. COMPARISON: None. FINDINGS: Surgical changes and devices: None. Lungs and pleura: Lungs are clear. No pleural effusions or pneumothorax. Mediastinum: Mediastinal contours appear normal. Heart size is normal. Bones and chest wall: No suspicious bony lesions. Overlying soft tissues appear unremarkable. IMPRESSION: No acute pulmonary process. Dictated by: Carina Ho M.D. on 11/03/2021 at 12:52 Approved by: Carina Ho M.D. on 11/03/2021 at 12:52
--- NOTE | 2021-11-03 12:30 | ED.HA ---
HPI - Headache <Stanislav Akins PA-C - Last Filed: 11/03/21 14:07> General Chief Complaint: Headache Stated Complaint: Inner ear swelling, head pain, anxiety Time Seen by Provider: 11/03/21 11:42 Mode of arrival: Ambulatory History of Present Illness HPI Narrative: Patient is a 61-year-old male patient who presents to the ED complaining of headache along the left side of his head behind his left eye that radiates into his spiritism. He has been having increased stress and significant life changes in his life that is cause some increased levels of anxiety. Patient reports that he has had some episodes of near choking spells while sleeping flat that has woken him suddenly and he has been unable to breathe and unable to clear his throat. These events have caused significant amounts of concern for the patient that he refuses to lay flat and has not slept well in the last few months. He is recently become unemployed and his family has a significant history of brain tumors in the past and based on his headache he is having significant concerns that he may be developing a brain tumor as well. He is on a blood pressure medication and anticholesterol medication and a heart rate medication of which he was unclear the names. He states that he has had no changes in vision he has had some increase in nausea and some soft stools however no watery diarrhea no reported vomiting. He denies any fever cough sore throat chills body aches. He is currently vaccinated for COVID. He denies any recent exposure. He denies any chest pain however he has openly admitted that he is self medicating with someone else's Xanax and gabapentin. He does not feel like the medication is being effective in treating his levels of anxiety. Related Data Home Medications Medication Instructions Recorded Confirmed gabapentin 600 mg tablet 600 mg PO BID 08/21/21 08/21/21 Previous Rx's Medication Instructions Recorded albuterol sulfate 90 mcg/actuation 1 puff inhalation Q6H #18 grams 09/01/21 aerosol inhaler atorvastatin 10 mg tablet (Lipitor) 10 mg PO HS #90 tabs 09/01/21 diltiazem HCl 240 mg capsule,24 240 mg PO DAILY #90 caps 09/01/21 hr,extended release lisinopril 20 mg tablet 20 mg PO DAILY #90 tabs 09/01/21 sumatriptan succinate 50 mg tablet 50 mg PO PRN PRN headache #14 tabs 10/08/21 (Imitrex) lorazepam 1 mg tablet (Ativan) 1 mg PO TID PRN anxiety #10 tabs 11/03/21 Allergies Allergy/AdvReac Type Severity Reaction Status Date / Time venom-wasp Allergy Severe swelling Verified 11/03/21 11:19 codeine Allergy Intermediate HIVES Verified 11/03/21 11:19 omeprazole Allergy Intermediate HIVES Verified 11/03/21 11:19 venom-honey bee Allergy Mild SWELLING Verified 11/03/21 11:19 [bee venom (honey bee)] Review of Systems <Stanislav Akins PA-C - Last Filed: 11/03/21 14:07> Review of Systems ROS Unobtainable: All systems reviewed & are unremarkable except as noted in HPI and below Constitutional Constitutional: Denies chills, Reports difficulty sleeping, Denies fatigue, Denies fever(s), Denies frequent falls, Reports headache(s), Denies lethargy and Denies weakness Eyes Eyes: Denies change in vision, Denies eye discharge, Denies irritation and Denies loss of vision ENT Ears, Nose, Mouth, and Throat: Denies change in voice, Denies dizziness, Reports headache(s), Denies neck pain, Denies sore throat and Denies throat swelling Cardiovascular Cardiovascular: Denies chest pain, Denies irregular heart rhythm, Denies lightheadedness, Denies palpitations, Reports dyspnea, Denies dyspnea on exertion and Reports orthopnea Respiratory Respiratory: Denies cough, Reports dyspnea, Denies dyspnea on exertion and Denies wheezing Gastrointestinal Gastrointestinal: Denies abdominal pain, Denies change in bowel habits, Denies diarrhea, Denies nausea and Denies vomiting Genitourinary Genitourinary: Denies hematuria, Denies flank pain, Denies urinary incontinence and Denies urinary urgency Musculoskeletal Musculoskeletal: Denies back pain, Denies muscle weakness, Denies neck pain, Denies numbness and Denies tingling Integumentary/Breasts Skin/Breast: Denies pruritus, Denies erythema, Denies rash and Denies wounds Neurologic Neurologic: Denies behavioral changes, Denies confusion, Denies dizziness, Denies frequent falls, Reports headache(s), Denies loss of vision, Denies numbness, Denies tingling and Denies weakness Psychiatric Psychiatric: Denies anxiety, Denies behavioral changes, Denies confusion, Denies depression, Denies homicidal ideation and Denies suicidal ideation Endocrine Endocrine: Denies fatigue, Denies flushing and Denies palpitations Hematologic/Lymphatic Hematologic/Lymphatic: Denies easy bruising Allergic/Immunologic Allergic/Immunologic: Denies urticaria, Denies throat swelling and Denies wheezing Patient History <Stanislav Akins PA-C - Last Filed: 11/03/21 14:07> Medical History Anxiety (~2009) Asthma Cellulitis Depression (~2009) Fast heart beat (~2013) Foot pain (~2009) Fractures (~2007) Gastroparesis Genital herpes (~1999) GERD (gastroesophageal reflux disease) Hay fever Headache (~1982) Hepatitis C (~2008) Inguinal hernia Migraines (~1982) Neuropathy Peptic ulcer disease Seasonal allergies Shoulder pain Stomach ulcer Surgical History History of surgery (1997) Status post colonoscopy (~10/2008) Social History household members: significant other Smoking Status: Former smoker alcohol intake: current Smoking Status: Former smoker alcohol intake frequency: holidays/special occasions only Substance Use Type: marijuana and prescription drug Exam <Stanislav Akins PA-C - Last Filed: 11/03/21 14:07> Initial Vital Signs Initial Vital Signs: Vital Signs Temperature 97.6 F 11/03/21 11:17 Pulse Rate 77 11/03/21 11:17 Respiratory Rate 15 11/03/21 11:17 Blood Pressure 197/129 H 11/03/21 11:17 Pulse Oximetry 100 11/03/21 11:17 Oxygen Delivery Method 11/03/21 11:17 Const General: cooperative, in distress and anxious Nutritional Appearance: well nourished [place] Head: normal to inspection, normocephalic and atraumatic Ears: hearing grossly normal bilaterally, external ears normal and TM's normal bilaterally Nose: external nose normal, nares normal and nasal mucous membranes and turbinates normal Face and sinus: normal facial exam, sinuses nontender and face symmetric Mouth: oral mucosae normal Teeth and gingiva: dentition normal and gingiva normal Throat: posterior oropharynx normal Eyes General: Yes appearance normal, both eyes and all related structures Pupils: PERRL Neck Neck: normal visual inspection and full ROM Resp Effort & Inspection: normal respiratory effort and able to speak in complete sentences Auscultation: clear to auscultation bilaterally Percussion: percussion normal Cardio Palpation: normal PMI Rate: regular rate Rhythm: regular rhythm Heart Sounds: S1 normal and S2 normal GI Inspection: normal to inspection Palpation: soft and no hepatosplenomegaly Percussion: normal to percussion Auscultation: normal bowel sounds Neuro General: patient alert, patient awake and patient oriented x3 Cranial Nerves: CN's II-XI intact bilaterally Cognition: normal cognition Speech: speech normal <Mani Watkins DO - Last Filed: 11/05/21 09:54> Initial Vital Signs Initial Vital Signs: Vital Signs Temperature 97.6 F 11/03/21 11:17 Pulse Rate 77 11/03/21 11:17 Respiratory Rate 15 11/03/21 11:17 Blood Pressure 197/129 H 11/03/21 11:17 Pulse Oximetry 100 11/03/21 11:17 Oxygen Delivery Method 11/03/21 11:17 Course <Stanislav Akins PA-C - Last Filed: 11/03/21 14:07> Orders Ordered: Discontinued Medications Labetalol HCl (Labetalol 20 Mg/4 Ml Syringe) 20 mg IV NOW ONE Stop: 11/03/21 12:27 Last Admin: 11/03/21 12:42 Dose: Not Given Documented By: THOMAS Lorazepam (Lorazepam 2 Mg/Ml Inj) 1 mg IV NOW ONE Stop: 11/03/21 12:27 Last Admin: 11/03/21 12:41 Dose: 1 mg Documented By: THOMAS Reevaluation(s) Reevaluation #1: Once patient received the Ativan blood pressure normalized patient's anxiety level decreased patient was feeling much better. He was denying any headache. Vital Signs Vital signs: Vital Signs - 8 hr 11/03/21 11:17 11/03/21 12:19 11/03/21 12:19 Temperature 97.6 F Pulse Rate 77 43 L Respiratory Rate 15 Blood Pressure 197/129 H 206/124 H Pulse Oximetry 100 99 Oxygen Delivery Method Room Air 11/03/21 12:23 11/03/21 12:23 11/03/21 12:30 Temperature Pulse Rate 89 64 Respiratory Rate 30 H 27 H Blood Pressure 195/121 H Pulse Oximetry 99 97 Oxygen Delivery Method 11/03/21 12:38 11/03/21 12:38 Temperature Pulse Rate 63 Respiratory Rate 26 H Blood Pressure 162/101 H Pulse Oximetry 97 Oxygen Delivery Method <Mani Watkins DO - Last Filed: 11/05/21 09:54> Orders Ordered: Discontinued Medications Labetalol HCl (Labetalol 20 Mg/4 Ml Syringe) 20 mg IV NOW ONE Stop: 11/03/21 12:27 Last Admin: 11/03/21 12:42 Dose: Not Given Documented By: SB Lorazepam (Lorazepam 2 Mg/Ml Inj) 1 mg IV NOW ONE Stop: 11/03/21 12:27 Last Admin: 11/03/21 12:41 Dose: 1 mg Documented By: SB Vital Signs Vital signs: Vital Signs - 8 hr 11/03/21 11:17 11/03/21 12:19 11/03/21 12:19 Temperature 97.6 F Pulse Rate 77 43 L Respiratory Rate 15 Blood Pressure 197/129 H 206/124 H Pulse Oximetry 100 99 Oxygen Delivery Method Room Air 11/03/21 12:23 11/03/21 12:23 11/03/21 12:30 Temperature Pulse Rate 89 64 Respiratory Rate 30 H 27 H Blood Pressure 195/121 H Pulse Oximetry 99 97 Oxygen Delivery Method 11/03/21 12:38 11/03/21 12:38 Temperature Pulse Rate 63 Respiratory Rate 26 H Blood Pressure 162/101 H Pulse Oximetry 97 Oxygen Delivery Method MDM - Headache <Stanislav Akins PA-C - Last Filed: 11/03/21 14:07> Differential Diagnosis Differential diagnosis: Likely headache Lab Data Result diagrams: 11/03/21 12:30 11/03/21 12:30 Labs: Lab Results 11/03/21 11/03/21 11/03/21 Range/Units 12:30 12:30 12:30 WBC 8.0 (4.5-11.0) X10^3/uL RBC 4.46 L (4.5-5.9) X10^6/uL Hgb 14.9 (13.5-17.5) g/dL Hct 42.7 (41-53) % MCV 95.8 (80-100) fL MCH 33.4 (26-34) PG MCHC 34.8 (30-36) % RDW 13.7 (11.6-14.8) % Plt Count 209 (150-400) X10^3/uL Neut % (Auto) 64.0 (50-75) % Lymph % (Auto) 23.4 L (25-40) % [place] % (Auto) 8.8 (3-14) % Eos % (Auto) 2.9 (2-4) % Baso % (Auto) 0.9 (0-2) % Neut # (Auto) 5100 (1498-4290) /uL Lymph # (Auto) 1900 (2076-9878) /uL [place] # (Auto) 700 (0-900) /uL Eos # (Auto) 200 (0-450) /uL Baso # (Auto) 100 (0-100) /uL Sodium 141 (137-145) mmol/L Potassium 4.9 (3.4-5.1) mmol/L Chloride 106 (98-107) mmol/L Carbon Dioxide 25 (22-32) mmol/L BUN 12 (9-20) mg/dL Creatinine 0.70 (0.66-1.25) mg/dL Estimated GFR > 60 (>60) mL/min BUN/Creatinine Ratio 17.1 (6-22) Glucose 98 (80-110) mg/dL Calcium 9.5 (8.4-10.2) mg/dL Total Bilirubin 0.6 (0.2-1.3) mg/dL AST 30 (17-59) IU/L ALT 18 (<50) IU/L Alkaline Phosphatase 67 (38-126) U/L Total Creatine Kinase 128 (55-170) U/L CK-MB (CK-2) 0.88 (<2.37) ng/mL CK-MB (CK-2) Rel Index 0.7 L (1.5-5.0) % Troponin I < 0.012 (0.01-0.034) ng/mL NT-Pro-B Natriuret Pep (<125) pg/mL Total Protein 8.7 H (6.3-8.2) g/dL Albumin 5.2 H (3.5-5.0) g/dL Globulin 3.5 (1.7-4.1) g/dL Albumin/Globulin Ratio 1.5 (1.0-2.8) TSH 1.24 (0.47-4.68) uIU/mL 11/03/21 Range/Units 12:30 WBC (4.5-11.0) X10^3/uL RBC (4.5-5.9) X10^6/uL Hgb (13.5-17.5) g/dL Hct (41-53) % MCV (80-100) fL MCH (26-34) PG MCHC (30-36) % RDW (11.6-14.8) % Plt Count (150-400) X10^3/uL Neut % (Auto) (50-75) % Lymph % (Auto) (25-40) % [place] % (Auto) (3-14) % Eos % (Auto) (2-4) % Baso % (Auto) (0-2) % Neut # (Auto) (8650-7203) /uL Lymph # (Auto) (8505-5672) /uL [place] # (Auto) (0-900) /uL Eos # (Auto) (0-450) /uL Baso # (Auto) (0-100) /uL Sodium (137-145) mmol/L Potassium (3.4-5.1) mmol/L Chloride (98-107) mmol/L Carbon Dioxide (22-32) mmol/L BUN (9-20) mg/dL Creatinine (0.66-1.25) mg/dL Estimated GFR (>60) mL/min BUN/Creatinine Ratio (6-22) Glucose (80-110) mg/dL Calcium (8.4-10.2) mg/dL Total Bilirubin (0.2-1.3) mg/dL AST (17-59) IU/L ALT (<50) IU/L Alkaline Phosphatase (38-126) U/L Total Creatine Kinase (55-170) U/L CK-MB (CK-2) (<2.37) ng/mL CK-MB (CK-2) Rel Index (1.5-5.0) % Troponin I (0.01-0.034) ng/mL NT-Pro-B Natriuret Pep 123 (<125) pg/mL Total Protein (6.3-8.2) g/dL Albumin (3.5-5.0) g/dL Globulin (1.7-4.1) g/dL Albumin/Globulin Ratio (1.0-2.8) TSH (0.47-4.68) uIU/mL Imaging Data CT scan - head: Radiologist's Impression: [address] [address] [address] Scan Report Signed Patient: Elysia Juárez MR#: [id number] : 03/18/1939 Acct:[id number] Age/Sex: 82 / F Date of Service: 11/03/21 Loc: ED Accession Number: [id number] ?? Procedure: CT head/brain wo con Ordering Provider: Mani Watkins D.O. PROCEDURE:? CT HEAD/BRAIN WO CON ? INDICATIONS:? fall hit head on coumadin ? TECHNIQUE:? Noncontrast 4.5 mm thick angled axial sections acquired from the foramen magnum to the vertex, with coronal and sagittal reformats.? For radiation dose reduction, the following was used:? automated exposure control, adjustment of mA and/or kV according to patient size.? ? COMPARISON:? [facility], CT, HEAD WITHOUT CONTRAST, 01/11/2017, 16:08. ? FINDINGS:? Image quality:? Excellent.? ? CSF spaces:? Basal cisterns are patent.? No extra-axial fluid collections.? The ventricles are symmetric in size and shape.? ? Brain:? No intracranial bleeds or masses.? There is cerebral volume loss for age, with resultant ventricular and sulcal prominence.? There are periventricular and deep white matter chronic small vessel ischemic changes.? There is intracranial internal carotid artery atherosclerosis.? ? Skull and face:? Calvarium and visualized facial bones appear intact, without suspicious lesions.? Right parietal scalp hematoma. ? Sinuses:? Visualized sinuses and mastoids are clear.? ? IMPRESSION:? ? 1. No acute intracranial process.? Right parietal scalp hematoma. ? 2. Moderate atrophy and chronic microvascular ischemic changes. ? ? ? Dictated by: Carina Ho M.D. on 11/03/2021 at 13:07 ? ? Approved by: Carina Ho M.D. on 11/03/2021 at 13:09?? Chest x-ray: Radiologist's Impression: [address] [address] XRay Report Signed Patient: Austyn Camp MR#: [id number] : 1960 Acct:[id number] Age/Sex: 61 / M Date of Service: 11/03/21 Loc: ED Accession Number: [id number] ?? Procedure: XR chest 1V Ordering Provider: Stanislav Akins P.A-C PROCEDURE:? XR CHEST 1V ? INDICATIONS:? shortness of breath ? TECHNIQUE:? One view of the chest was acquired.? ? COMPARISON:? None. ? FINDINGS:? ? Surgical changes and devices:? None.? ? Lungs and pleura:? Lungs are clear.? No pleural effusions or pneumothorax.? ? Mediastinum:? Mediastinal contours appear normal.? Heart size is normal.? ? Bones and chest wall:? No suspicious bony lesions.? Overlying soft tissues appear unremarkable.? ? IMPRESSION:? No acute pulmonary process. ? ? Dictated by: Carina Ho M.D. on 11/03/2021 at 12:52 ? ? Approved by: Carina Ho M.D. on 11/03/2021 at 12:52?? MDM Narrative Medical decision making narrative: Patient was seen today for headache and severe hypertensive crisis. I believe based on symptoms and history patient was suffering from an acute anxiety attack of which the Ativan was effective in treating. Once patient received Ativan his blood pressure and symptoms seem to improve significantly. Based on his symptoms and recent increase in stress and loss of employment. It is feasible that anxiety is the origin of most of his complaints. I spoke to him about treatment options advised him that I could only provide him some anti exciting medications for a couple of days that he would have the follow-up with the primary care physician for further refills. He was agreeable and understood and patient was discharged home. <Mani Watkins, - Last Filed: 11/05/21 09:54> Lab Data Labs: Lab Results 11/03/21 11/03/21 11/03/21 Range/Units 12:30 12:30 12:30 WBC 8.0 (4.5-11.0) X10^3/uL RBC 4.46 L (4.5-5.9) X10^6/uL Hgb 14.9 (13.5-17.5) g/dL Hct 42.7 (41-53) % MCV 95.8 (80-100) fL MCH 33.4 (26-34) PG MCHC 34.8 (30-36) % RDW 13.7 (11.6-14.8) % Plt Count 209 (150-400) X10^3/uL Neut % (Auto) 64.0 (50-75) % Lymph % (Auto) 23.4 L (25-40) % [place] % (Auto) 8.8 (3-14) % Eos % (Auto) 2.9 (2-4) % Baso % (Auto) 0.9 (0-2) % Neut # (Auto) 5100 (0988-3372) /uL Lymph # (Auto) 1900 (3506-8006) /uL [place] # (Auto) 700 (0-900) /uL Eos # (Auto) 200 (0-450) /uL Baso # (Auto) 100 (0-100) /uL Sodium 141 (137-145) mmol/L Potassium 4.9 (3.4-5.1) mmol/L Chloride 106 (98-107) mmol/L Carbon Dioxide 25 (22-32) mmol/L BUN 12 (9-20) mg/dL Creatinine 0.70 (0.66-1.25) mg/dL Estimated GFR > 60 (>60) mL/min BUN/Creatinine Ratio 17.1 (6-22) Glucose 98 (80-110) mg/dL Calcium 9.5 (8.4-10.2) mg/dL Total Bilirubin 0.6 (0.2-1.3) mg/dL AST 30 (17-59) IU/L ALT 18 (<50) IU/L Alkaline Phosphatase 67 (38-126) U/L Total Creatine Kinase 128 (55-170) U/L CK-MB (CK-2) 0.88 (<2.37) ng/mL CK-MB (CK-2) Rel Index 0.7 L (1.5-5.0) % Troponin I < 0.012 (0.01-0.034) ng/mL NT-Pro-B Natriuret Pep (<125) pg/mL Total Protein 8.7 H (6.3-8.2) g/dL Albumin 5.2 H (3.5-5.0) g/dL Globulin 3.5 (1.7-4.1) g/dL Albumin/Globulin Ratio 1.5 (1.0-2.8) TSH 1.24 (0.47-4.68) uIU/mL 11/03/21 Range/Units 12:30 WBC (4.5-11.0) X10^3/uL RBC (4.5-5.9) X10^6/uL Hgb (13.5-17.5) g/dL Hct (41-53) % MCV (80-100) fL MCH (26-34) PG MCHC (30-36) % RDW (11.6-14.8) % Plt Count (150-400) X10^3/uL Neut % (Auto) (50-75) % Lymph % (Auto) (25-40) % [place] % (Auto) (3-14) % Eos % (Auto) (2-4) % Baso % (Auto) (0-2) % Neut # (Auto) (0110-1534) /uL Lymph # (Auto) (7687-0433) /uL [place] # (Auto) (0-900) /uL Eos # (Auto) (0-450) /uL Baso # (Auto) (0-100) /uL Sodium (137-145) mmol/L Potassium (3.4-5.1) mmol/L Chloride (98-107) mmol/L Carbon Dioxide (22-32) mmol/L BUN (9-20) mg/dL Creatinine (0.66-1.25) mg/dL Estimated GFR (>60) mL/min BUN/Creatinine Ratio (6-22) Glucose (80-110) mg/dL Calcium (8.4-10.2) mg/dL Total Bilirubin (0.2-1.3) mg/dL AST (17-59) IU/L ALT (<50) IU/L Alkaline Phosphatase (38-126) U/L Total Creatine Kinase (55-170) U/L CK-MB (CK-2) (<2.37) ng/mL CK-MB (CK-2) Rel Index (1.5-5.0) % Troponin I (0.01-0.034) ng/mL NT-Pro-B Natriuret Pep 123 (<125) pg/mL Total Protein (6.3-8.2) g/dL Albumin (3.5-5.0) g/dL Globulin (1.7-4.1) g/dL Albumin/Globulin Ratio (1.0-2.8) TSH (0.47-4.68) uIU/mL Discharge Plan Departure Patient Disposition: Home Clinical Impression: Acute anxiety Headache Qualifiers: Headache type: unspecified Headache chronicity pattern: acute headache Intractability: not intractable Qualified Code(s): R51.9 - Headache, unspecified Hypertension Qualifiers: Hypertension type: unspecified Qualified Code(s): I10 - Essential (primary) hypertension Instructions: DI for Anxiety -- Adult, DI for Headache Activity Restrictions/Additional Instructions: You were seen today for your headache however I feel like her symptoms were related mostly to anxiety. It was encouraging that the medication that we gave you was effective in treating your anxiety and your elevated blood pressure. I would recommend that you follow-up with a primary care physician and behavioral health for referral for treatment of your ongoing issues with anxiety. A prescription for Ativan was sent to your pharmacy that you recommended. You can pick that up at your earliest convenience. Thank you for the opportunity to care for you today. Prescriptions: New lorazepam [Ativan] 1 mg tablet 1 mg PO TID PRN (Reason: anxiety) Qty: 10 0RF No Action lisinopril 20 mg tablet 20 mg PO DAILY Qty: 90 1RF atorvastatin [Lipitor] 10 mg tablet 10 mg PO HS Qty: 90 1RF albuterol sulfate 90 mcg/actuation HFA aerosol inhaler 1 puff INHALATION Q6H Qty: 18 2RF Rx Instructions: administer with spacer diltiazem HCl 240 mg capsule,extended release 24 hr 240 mg PO DAILY Qty: 90 1RF sumatriptan succinate [Imitrex] 50 mg tablet 50 mg PO PRN PRN (Reason: headache) Qty: 14 3RF Rx Instructions: Take one tablet by mouth at onset of migraine, may take additional 1 tablet in 2 hours if needed. gabapentin 600 mg tablet 600 mg PO BID Referrals: Jorge Christina MD [Primary Care Provider] - Visit Report Forms: Patient Portal/API <Mani [place], DO - Last Filed: 11/05/21 09:54> Cosign ED Attending Costedature Attestation: I was immediately available in the department for consultation. Documentation has been reviewed. I agree with assessment and plan.
[2021-11-03] MEDS: LORazepam 2 MG/ML INJ 1 MG IV (12:41)
[2021-11-03 12:44] LABS: Add Manual Diff / Slide Review NO; Basophils Absolute Auto 100 /uL (0-100); Basophils Percent Auto 0.9 % (0-2); Eosinophils Absolute Auto 200 /uL (0-450); Eosinophils Percent Auto 2.9 % (2-4); Hematocrit 42.7 % (41-53); Hemoglobin 14.9 g/dL (13.5-17.5); Lymphocytes Absolute Auto 1900 /uL (1100-4500); Lymphocytes Percent Auto 23.4 % (25-40); Mean Corpuscular HGB Conc 34.8 % (30-36); Mean Corpuscular Hemoglobin 33.4 PG (26-34); Mean Corpuscular Volume 95.8 fL (80-100); Monocytes Absolute Auto 700 /uL (0-900); Monocytes Percent Auto 8.8 % (3-14); Neutrophils Absolute Auto 5100 /uL (1500-7000); Platelet Count 209 X10^3/uL (150-400); Red Blood Cell Count 4.46 X10^6/uL (4.5-5.9); Red Cell Distribution Width 13.7 % (11.6-14.8)
[2021-11-03 13:02] LABS: Alanine Aminotransferase 18 IU/L (<50); Albumin 5.2 g/dL (3.5-5.0); Albumin Globulin Ratio 1.5 (1.0-2.8); Alkaline Phosphatase 67 U/L (38-126); Aspartate Aminotransferase 30 IU/L (17-59); BUN Creatinine Ratio 17.1 (6-22); Bilirubin Total 0.6 mg/dL (0.2-1.3); Blood Urea Nitrogen 12 mg/dL (9-20); Calcium 9.5 mg/dL (8.4-10.2); Carbon Dioxide 25 mmol/L (22-32); Chloride 106 mmol/L (98-107); Creatine Kinase 128 U/L (55-170); Estimated Glomerular Filt Rate > 60 mL/min (>60); Globulin 3.5 g/dL (1.7-4.1); Glucose 98 mg/dL (80-110); Potassium 4.9 mmol/L (3.4-5.1); Sodium 141 mmol/L (137-145); Total Protein 8.7 g/dL (6.3-8.2)
--- NOTE | 2021-11-03 13:04 | PC.NURSE ---
Provider Stanislav and RN Anabel at bedside during assessment. Pt reports I'm coming unhinged. Pt reports squeezing pain behind left eye that has been there on and off for over a year. Pt reports hx of sinus infections, and difficulty swallowing when lying down. He reports sleeping upright because he feels like he is choking when he lies down at night due to phlegm. Pt is shaky and reports feeling very anxious.
[2021-11-03 13:11] LABS: NT-proBNP (BNP-Adult 18+) 123 pg/mL (<125)
[2021-11-03 13:13] LABS: Troponin I < 0.012 ng/mL (0.01-0.034)
[2021-11-03 13:17] LABS: CKMB % Relative Index 0.7 % (1.5-5.0); Creatine Kinase MB 0.88 ng/mL (<2.37)
[2021-11-03 13:19] LABS: HEMOLYSIS 78 (0-50)
[2021-11-03 13:45] LABS: Thyroid Stimulating Hormone 1.24 uIU/mL (0.47-4.68)
== END 2021-11-03 14:19 | disposition home or self-care (01) ==
PROVIDERS: Emergency Provider Physician Assistant; PCP Pediatrics
DX: F41.9 Anxiety disorder, unspecified (principal); R51.9 Headache, unspecified; I10 Essential (primary) hypertension; R06.02 Shortness of breath; Z79.01 Long term (current) use of anticoagulants
CPT/HCPCS: 36415; 70450; 71045; 80053; 82550; 82553; 83880; 84443; 84484; 85025; 93005; 93010; 96374; 99284; 99285; J2060

== ENCOUNTER 2021-11-09 14:59 | Emergency (ER) | payer OTHER, MEDICAID, SELFPAY ==
[2021-11-03 15:55] VITALS: BMI 21.6
[2021-11-09 15:04] VITALS: BP 130/82; PULSE 71; RESP 18; TEMP 37.2; O2SAT 94; BMI 22.8
--- NOTE | 2021-11-09 16:30 | ED_ITS ---
HPI - Psych <Rayray Valente PA-C - Last Filed: 11/09/21 16:35> General Chief Complaint: Psychiatric Symptoms Stated Complaint: Freaking Out/PANIC Time Seen by Provider: 11/09/21 16:09 Source: patient Mode of arrival: Ambulatory History of Present Illness HPI Narrative: Patient is a 61-year-old male who presents to the emergency department for an evaluation of anxiety. Patient states that over the past month or so he has been experiencing panic attacks. He states that he has been experiencing multiple stressors, stating that he recently lost his job, experienced an end of a relationship, lost around 8000 dollars worth goods from his truck, and has general concerns about aging. Patient explains he has been experiencing worsening anxiety at night that stems from sensations of difficulty breathing. He states that he will awaken the middle of the night feeling as if he cannot breathe and scramble is a across the room looking for a light source. He states that he also will go searching for areas where other people are as he is concerned about being alone. Of note, patient denies any thoughts of harming himself but when asked if he has any urge to hurt others he responds ?I do not know?. He states that he does not have any direct plans to harm anyone, however he explains that he has ?never been in this position before? and is unsure of what he is ?capable of?. He explains that he has been taking lorazepam and Xanax from others to treat his symptoms, stating that he also takes gabapentin t hroughout the day to help alleviate his anxiety. He states that the lorazepam, Xanax, and gabapentin helped to ?take the edge off? but he states that the relief is only temporary. He denies any fever, chills, cough, vomiting, diarrhea, constipation, abdominal pain, dysuria, hematuria, or any other concerning symptoms. No further concerns were voiced at this time. Related Data Home Medications Medication Instructions Recorded Confirmed gabapentin 600 mg tablet 600 mg PO BID 08/21/21 11/09/21 Previous Rx's Medication Instructions Recorded albuterol sulfate 90 mcg/actuation 1 puff inhalation Q6H #18 grams 11/10/21 aerosol inhaler atorvastatin 10 mg tablet (Lipitor) 10 mg PO HS #90 tabs 11/10/21 diltiazem HCl 240 mg capsule,24 240 mg PO DAILY #90 caps 11/10/21 hr,extended release lisinopril 20 mg tablet 20 mg PO DAILY #90 tabs 11/10/21 lorazepam 1 mg tablet (Ativan) 1 mg PO TID PRN anxiety #10 tabs 11/10/21 sumatriptan succinate 50 mg tablet 50 mg PO PRN PRN headache #14 tabs 11/10/21 (Imitrex) Allergies Allergy/AdvReac Type Severity Reaction Status Date / Time venom-wasp Allergy Severe swelling Verified 11/09/21 15:16 codeine Allergy Intermediate HIVES Verified 11/09/21 15:16 omeprazole Allergy Intermediate HIVES Verified 11/09/21 15:16 venom-honey bee Allergy Mild SWELLING Verified 11/09/21 15:16 [bee venom (honey bee)] Review of Systems <Rayray Valente PA-C - Last Filed: 11/09/21 16:35> Constitutional Constitutional: Denies chills, Denies fatigue, Denies fever(s), Denies frequent falls, Denies lethargy and Denies weakness ENT Ears, Nose, Mouth, and Throat: Denies neck pain Cardiovascular Cardiovascular: Denies chest pain, Denies irregular heart rhythm, Denies lightheadedness, Denies palpitations, Denies dyspnea, Denies dyspnea on exertion and Denies orthopnea Respiratory Respiratory: Denies dyspnea and Denies dyspnea on exertion Gastrointestinal Gastrointestinal: Denies abdominal pain, Denies change in bowel habits, Denies diarrhea, Denies nausea and Denies vomiting Genitourinary Genitourinary: Denies hematuria, Denies flank pain, Denies urinary incontinence and Denies urinary urgency Musculoskeletal Musculoskeletal: Denies back pain, Denies muscle weakness, Denies neck pain, Denies numbness and Denies tingling Integumentary/Breasts Skin/Breast: Denies pruritus, Denies erythema, Denies rash and Denies wounds Neurologic Neurologic: Denies behavioral changes, Denies confusion, Denies frequent falls, Denies numbness, Denies tingling and Denies weakness Psychiatric Psychiatric: Reports anxiety, Denies behavioral changes, Denies confusion, Denies depression, Reports panic attacks, Denies suicidal ideation and Reports other (Sleep disturbances) Endocrine Endocrine: Denies fatigue and Denies palpitations Patient History <Rayray Valente PA-C - Last Filed: 11/09/21 16:35> Medical History (Updated 11/10/21 @ 13:57 by Jorge Christina MD) Agitation Anxiety (~2009) Asthma Cellulitis Depression (~2009) Fast heart beat (~2013) Foot pain (~2009) Fractures (~2007) Gastroparesis Genital herpes (~1999) GERD (gastroesophageal reflux disease) GERD (gastroesophageal reflux disease) Hay fever Headache (~1982) Hepatitis C (~2008) Homicidal ideation Inguinal hernia Migraines (~1982) Neuropathy Peptic ulcer disease Seasonal allergies Shoulder pain Sinusitis Stomach ulcer Surgical History History of surgery (1997) Status post colonoscopy (~10/2008) Social History household members: significant other Smoking Status: Former smoker alcohol intake: former substance use type: marijuana Smoking Status: Former smoker alcohol intake frequency: holidays/special occasions only Substance Use Type: marijuana and prescription drug Exam <Rayray Valente PA-C - Last Filed: 11/09/21 16:35> Narrative Exam Narrative: GENERAL: 61 year old patient appears stated age. Well-developed patient, in mild distress. HEAD: Atraumatic. Normocephalic. EYES: Pupils equal round and reactive. Extraocular motions intact. No scleral icterus. No injection or drainage. ENT: Nose without bleeding, purulent drainage. Throat without erythema, tonsillar hypertrophy or exudate. Airway patent. NECK: Trachea midline. Non tender CARDIOVASCULAR: Regular rate and rhythm without murmurs, gallops, or rubs. RESPIRATORY: Clear to auscultation. Breath sounds equal bilaterally. No wheezes, rales, or rhonchi. GASTROINTESTINAL: Abdomen soft, non-tender, nondistended. EXTREMITIES: No edema or joint tenderness. BACK: Nontender without deformity or crepitance. No flank tenderness. NEURO: AOx3. SKIN: No rash or erythema of visible areas Initial Vital Signs Initial Vital Signs: Vital Signs Temperature 99.0 F 11/09/21 15:04 Pulse Rate 71 11/09/21 15:04 Respiratory Rate 18 11/09/21 15:04 Blood Pressure 130/82 11/09/21 15:04 Pulse Oximetry 94 11/09/21 15:04 Oxygen Delivery Method 11/09/21 15:04 <Glendy Madison DO - Last Filed: 11/10/21 18:03> Initial Vital Signs Initial Vital Signs: Vital Signs Temperature 99.0 F 11/09/21 15:04 Pulse Rate 71 11/09/21 15:04 Respiratory Rate 18 11/09/21 15:04 Blood Pressure 130/82 11/09/21 15:04 Pulse Oximetry 94 11/09/21 15:04 Oxygen Delivery Method 11/09/21 15:04 <Gretel Oconnell MD - Last Filed: 11/10/21 15:22> Initial Vital Signs Initial Vital Signs: Vital Signs Temperature 99.0 F 11/09/21 15:04 Pulse Rate 71 11/09/21 15:04 Respiratory Rate 18 11/09/21 15:04 Blood Pressure 130/82 11/09/21 15:04 Pulse Oximetry 94 11/09/21 15:04 Oxygen Delivery Method 11/09/21 15:04 Course <Rayray Valente PA-C - Last Filed: 11/09/21 16:35> Orders Ordered: Discontinued Medications Lorazepam (Lorazepam 0.5 Mg Tablet) 1 mg PO NOW ONE Stop: 11/09/21 18:15 Last Admin: 11/09/21 18:18 Dose: 1 mg Documented By: AT Olanzapine (Olanzapine Odt 10 Mg Tab) 10 mg PO NOW ONE Stop: 11/09/21 19:15 Last Admin: 11/09/21 19:21 Dose: 10 mg Documented By: AT Vital Signs Vital signs: Vital Signs - 8 hr 11/10/21 13:09 11/10/21 15:26 Pulse Rate 67 66 Respiratory Rate 16 Blood Pressure 126/79 121/76 Pulse Oximetry 94 98 Oxygen Delivery Method Room Air Room Air <Glendy Madison DO - Last Filed: 11/10/21 18:03> Orders Ordered: Discontinued Medications Lorazepam (Lorazepam 0.5 Mg Tablet) 1 mg PO NOW ONE Stop: 11/09/21 18:15 Last Admin: 11/09/21 18:18 Dose: 1 mg Documented By: AT Olanzapine (Olanzapine Odt 10 Mg Tab) 10 mg PO NOW ONE Stop: 11/09/21 19:15 Last Admin: 11/09/21 19:21 Dose: 10 mg Documented By: AT Vital Signs Vital signs: Vital Signs - 8 hr 11/10/21 13:09 11/10/21 15:26 Pulse Rate 67 66 Respiratory Rate 16 Blood Pressure 126/79 121/76 Pulse Oximetry 94 98 Oxygen Delivery Method Room Air Room Air <Gretel Oconnell MD - Last Filed: 11/10/21 15:22> Orders Ordered: Discontinued Medications Lorazepam (Lorazepam 0.5 Mg Tablet) 1 mg PO NOW ONE Stop: 11/09/21 18:15 Last Admin: 11/09/21 18:18 Dose: 1 mg Documented By: AT Olanzapine (Olanzapine Odt 10 Mg Tab) 10 mg PO NOW ONE Stop: 11/09/21 19:15 Last Admin: 11/09/21 19:21 Dose: 10 mg Documented By: AT Vital Signs Vital signs: Vital Signs - 8 hr 11/10/21 13:09 11/10/21 15:26 Pulse Rate 67 66 Respiratory Rate 16 Blood Pressure 126/79 121/76 Pulse Oximetry 94 98 Oxygen Delivery Method Room Air Room Air MDM - Psych <Rayray Valente PA-C - Last Filed: 11/09/21 16:35> Lab Data Result diagrams: 11/09/21 17:47 11/09/21 17:47 Labs: Lab Results 11/09/21 11/09/21 11/09/21 Range/Units 17:30 17:30 17:47 WBC 7.7 (4.5-11.0) X10^3/uL RBC 4.06 L (4.5-5.9) X10^6/uL Hgb 13.4 L (13.5-17.5) g/dL Hct 38.6 L (41-53) % MCV 95.2 (80-100) fL MCH 33.0 (26-34) PG MCHC 34.6 (30-36) % RDW 13.5 (11.6-14.8) % Plt Count 193 (150-400) X10^3/uL Neut % (Auto) 55.6 (50-75) % Lymph % (Auto) 31.8 (25-40) % [place] % (Auto) 7.4 (3-14) % Eos % (Auto) 4.0 (2-4) % Baso % (Auto) 1.2 (0-2) % Neut # (Auto) 4300 (9827-6510) /uL Lymph # (Auto) 2400 (3658-0659) /uL [place] # (Auto) 600 (0-900) /uL Eos # (Auto) 300 (0-450) /uL Baso # (Auto) 100 (0-100) /uL Sodium (137-145) mmol/L Potassium (3.4-5.1) mmol/L Chloride (98-107) mmol/L Carbon Dioxide (22-32) mmol/L BUN (9-20) mg/dL Creatinine (0.66-1.25) mg/dL Estimated GFR (>60) mL/min BUN/Creatinine Ratio (6-22) Glucose (80-110) mg/dL Calcium (8.4-10.2) mg/dL Total Bilirubin (0.2-1.3) mg/dL AST (17-59) IU/L ALT (<50) IU/L Alkaline Phosphatase (38-126) U/L Total Protein (6.3-8.2) g/dL Albumin (3.5-5.0) g/dL Globulin (1.7-4.1) g/dL Albumin/Globulin Ratio (1.0-2.8) TSH (0.47-4.68) uIU/mL Free T4 (0.78-2.19) ng/dL Urine Color Yellow Urine Appearance Clear Urine pH 7.0 (4.5-8.0) Ur Specific [place] 1.010 (1.000-1.035) Urine Protein Negative (Negative) Urine Glucose (UA) Negative (Negative) g/dL Urine Ketones Negative (NEGATIVE) Urine Occult Blood Negative (Negative) Urine Nitrate Negative (Negative) Urine Bilirubin Negative (NEGATIVE) Urine Urobilinogen 0.2 (0.2) E.U./dL Ur Leukocyte Esterase Negative (NEGATIVE) Urine RBC 0-1/hpf (0-5/HPF) Urine WBC 0-1/hpf (0-5/HPF) Urine Bacteria None seen (None) Ur Culture Indicated? Cult not indicated Salicylates (<20) mg/dL U Opiates 300ng/mL cut Negative (Negative) Ur Oxycodone Screen Negative (Negative) Urine Methadone Screen Negative (Negative) Acetaminophen (10-30) ug/mL Ur Barbiturates Screen Negative (Negative) U Tricyclic Antidepress Negative (Negative) Ur Phencyclidine Scrn Negative (Negative) Ur Amphetamines Screen Negative (Negative) U Methamphetamines Scrn Negative (Negative) Ur MDMA Scrn (Ecstasy) Negative (Negative) U Benzodiazepines Scrn Positive H (Negative) Urine Cocaine Screen Negative (Negative) U Marijuana (THC) Screen Positive H (Negative) Ethyl Alcohol ( - 10) mg/dL 11/09/21 11/09/21 Range/Units 17:47 17:47 WBC (4.5-11.0) X10^3/uL RBC (4.5-5.9) X10^6/uL Hgb (13.5-17.5) g/dL Hct (41-53) % MCV (80-100) fL MCH (26-34) PG MCHC (30-36) % RDW (11.6-14.8) % Plt Count (150-400) X10^3/uL Neut % (Auto) (50-75) % Lymph % (Auto) (25-40) % [place] % (Auto) (3-14) % Eos % (Auto) (2-4) % Baso % (Auto) (0-2) % Neut # (Auto) (1174-0069) /uL Lymph # (Auto) (2135-3180) /uL [place] # (Auto) (0-900) /uL Eos # (Auto) (0-450) /uL Baso # (Auto) (0-100) /uL Sodium 139 (137-145) mmol/L Potassium 4.1 (3.4-5.1) mmol/L Chloride 105 (98-107) mmol/L Carbon Dioxide 25 (22-32) mmol/L BUN 14 (9-20) mg/dL Creatinine 0.66 (0.66-1.25) mg/dL Estimated GFR > 60 (>60) mL/min BUN/Creatinine Ratio 21.2 (6-22) Glucose 94 (80-110) mg/dL Calcium 9.1 (8.4-10.2) mg/dL Total Bilirubin 0.2 (0.2-1.3) mg/dL AST 21 (17-59) IU/L ALT 15 (<50) IU/L Alkaline Phosphatase 68 (38-126) U/L Total Protein 7.5 (6.3-8.2) g/dL Albumin 4.7 (3.5-5.0) g/dL Globulin 2.8 (1.7-4.1) g/dL Albumin/Globulin Ratio 1.7 (1.0-2.8) TSH 2.31 D (0.47-4.68) uIU/mL Free T4 0.91 (0.78-2.19) ng/dL Urine Color Urine Appearance Urine pH (4.5-8.0) Ur Specific [place] (1.000-1.035) Urine Protein (Negative) Urine Glucose (UA) (Negative) g/dL Urine Ketones (NEGATIVE) Urine Occult Blood (Negative) Urine Nitrate (Negative) Urine Bilirubin (NEGATIVE) Urine Urobilinogen (0.2) E.U./dL Ur Leukocyte Esterase (NEGATIVE) Urine RBC (0-5/HPF) Urine WBC (0-5/HPF) Urine Bacteria (None) Ur Culture Indicated? Salicylates < 1.0 (<20) mg/dL U Opiates 300ng/mL cut (Negative) Ur Oxycodone Screen (Negative) Urine Methadone Screen (Negative) Acetaminophen < 10 (10-30) ug/mL Ur Barbiturates Screen (Negative) U Tricyclic Antidepress (Negative) Ur Phencyclidine Scrn (Negative) Ur Amphetamines Screen (Negative) U Methamphetamines Scrn (Negative) Ur MDMA Scrn (Ecstasy) (Negative) U Benzodiazepines Scrn (Negative) Urine Cocaine Screen (Negative) U Marijuana (THC) Screen (Negative) Ethyl Alcohol < 10 ( - 10) mg/dL <Glendy Madison, DO - Last Filed: 11/10/21 18:03> Lab Data Labs: Lab Results 11/09/21 11/09/21 11/09/21 Range/Units 17:30 17:30 17:47 WBC 7.7 (4.5-11.0) X10^3/uL RBC 4.06 L (4.5-5.9) X10^6/uL Hgb 13.4 L (13.5-17.5) g/dL Hct 38.6 L (41-53) % MCV 95.2 (80-100) fL MCH 33.0 (26-34) PG MCHC 34.6 (30-36) % RDW 13.5 (11.6-14.8) % Plt Count 193 (150-400) X10^3/uL Neut % (Auto) 55.6 (50-75) % Lymph % (Auto) 31.8 (25-40) % [place] % (Auto) 7.4 (3-14) % Eos % (Auto) 4.0 (2-4) % Baso % (Auto) 1.2 (0-2) % Neut # (Auto) 4300 (8674-1879) /uL Lymph # (Auto) 2400 (3206-9207) /uL [place] # (Auto) 600 (0-900) /uL Eos # (Auto) 300 (0-450) /uL Baso # (Auto) 100 (0-100) /uL Sodium (137-145) mmol/L Potassium (3.4-5.1) mmol/L Chloride (98-107) mmol/L Carbon Dioxide (22-32) mmol/L BUN (9-20) mg/dL Creatinine (0.66-1.25) mg/dL Estimated GFR (>60) mL/min BUN/Creatinine Ratio (6-22) Glucose (80-110) mg/dL Calcium (8.4-10.2) mg/dL Total Bilirubin (0.2-1.3) mg/dL AST (17-59) IU/L ALT (<50) IU/L Alkaline Phosphatase (38-126) U/L Total Protein (6.3-8.2) g/dL Albumin (3.5-5.0) g/dL Globulin (1.7-4.1) g/dL Albumin/Globulin Ratio (1.0-2.8) TSH (0.47-4.68) uIU/mL Free T4 (0.78-2.19) ng/dL Urine Color Yellow Urine Appearance Clear Urine pH 7.0 (4.5-8.0) Ur Specific [place] 1.010 (1.000-1.035) Urine Protein Negative (Negative) Urine Glucose (UA) Negative (Negative) g/dL Urine Ketones Negative (NEGATIVE) Urine Occult Blood Negative (Negative) Urine Nitrate Negative (Negative) Urine Bilirubin Negative (NEGATIVE) Urine Urobilinogen 0.2 (0.2) E.U./dL Ur Leukocyte Esterase Negative (NEGATIVE) Urine RBC 0-1/hpf (0-5/HPF) Urine WBC 0-1/hpf (0-5/HPF) Urine Bacteria None seen (None) Ur Culture Indicated? Cult not indicated Salicylates (<20) mg/dL U Opiates 300ng/mL cut Negative (Negative) Ur Oxycodone Screen Negative (Negative) Urine Methadone Screen Negative (Negative) Acetaminophen (10-30) ug/mL Ur Barbiturates Screen Negative (Negative) U Tricyclic Antidepress Negative (Negative) Ur Phencyclidine Scrn Negative (Negative) Ur Amphetamines Screen Negative (Negative) U Methamphetamines Scrn Negative (Negative) Ur MDMA Scrn (Ecstasy) Negative (Negative) U Benzodiazepines Scrn Positive H (Negative) Urine Cocaine Screen Negative (Negative) U Marijuana (THC) Screen Positive H (Negative) Ethyl Alcohol ( - 10) mg/dL 11/09/21 11/09/21 Range/Units 17:47 17:47 WBC (4.5-11.0) X10^3/uL RBC (4.5-5.9) X10^6/uL Hgb (13.5-17.5) g/dL Hct (41-53) % MCV (80-100) fL MCH (26-34) PG MCHC (30-36) % RDW (11.6-14.8) % Plt Count (150-400) X10^3/uL Neut % (Auto) (50-75) % Lymph % (Auto) (25-40) % [place] % (Auto) (3-14) % Eos % (Auto) (2-4) % Baso % (Auto) (0-2) % Neut # (Auto) (2978-4444) /uL Lymph # (Auto) (6216-6506) /uL [place] # (Auto) (0-900) /uL Eos # (Auto) (0-450) /uL Baso # (Auto) (0-100) /uL Sodium 139 (137-145) mmol/L Potassium 4.1 (3.4-5.1) mmol/L Chloride 105 (98-107) mmol/L Carbon Dioxide 25 (22-32) mmol/L BUN 14 (9-20) mg/dL Creatinine 0.66 (0.66-1.25) mg/dL Estimated GFR > 60 (>60) mL/min BUN/Creatinine Ratio 21.2 (6-22) Glucose 94 (80-110) mg/dL Calcium 9.1 (8.4-10.2) mg/dL Total Bilirubin 0.2 (0.2-1.3) mg/dL AST 21 (17-59) IU/L ALT 15 (<50) IU/L Alkaline Phosphatase 68 (38-126) U/L Total Protein 7.5 (6.3-8.2) g/dL Albumin 4.7 (3.5-5.0) g/dL Globulin 2.8 (1.7-4.1) g/dL Albumin/Globulin Ratio 1.7 (1.0-2.8) TSH 2.31 D (0.47-4.68) uIU/mL Free T4 0.91 (0.78-2.19) ng/dL Urine Color Urine Appearance Urine pH (4.5-8.0) Ur Specific [place] (1.000-1.035) Urine Protein (Negative) Urine Glucose (UA) (Negative) g/dL Urine Ketones (NEGATIVE) Urine Occult Blood (Negative) Urine Nitrate (Negative) Urine Bilirubin (NEGATIVE) Urine Urobilinogen (0.2) E.U./dL Ur Leukocyte Esterase (NEGATIVE) Urine RBC (0-5/HPF) Urine WBC (0-5/HPF) Urine Bacteria (None) Ur Culture Indicated? Salicylates < 1.0 (<20) mg/dL U Opiates 300ng/mL cut (Negative) Ur Oxycodone Screen (Negative) Urine Methadone Screen (Negative) Acetaminophen < 10 (10-30) ug/mL Ur Barbiturates Screen (Negative) U Tricyclic Antidepress (Negative) Ur Phencyclidine Scrn (Negative) Ur Amphetamines Screen (Negative) U Methamphetamines Scrn (Negative) Ur MDMA Scrn (Ecstasy) (Negative) U Benzodiazepines Scrn (Negative) Urine Cocaine Screen (Negative) U Marijuana (THC) Screen (Negative) Ethyl Alcohol < 10 ( - 10) mg/dL MDM Narrative Medical decision making narrative: Gricelda-patient signed out to me seen evaluated by myself. Patient is quite anxious and paranoid in the room. He and he has been seen hiding under a blanket will talk to social Work. He is getting amped up the benzodiazepine did not seem to help much. He is given 1 dose of Zyprexa he slept for a few hours. He is ambulatory to the restroom and then returns to bed to sleep more. I ev aluated him and spoke with him a little bit at that time. He is feeling better after some sleep. He seems much more calm. Allow him to sleep here throughout the night and re-evaluate in the morning. He said he just did not feel quite ready to go home. Patient certainly does not meet any sort of involuntary criteria at this time. We discussed options of voluntary treatment and placement however he is not quite ready to make that decision yet. <Gretel Oconnell MD - Last Filed: 11/10/21 15:22> Lab Data Labs: Lab Results 11/09/21 11/09/21 11/09/21 Range/Units 17:30 17:30 17:47 WBC 7.7 (4.5-11.0) X10^3/uL RBC 4.06 L (4.5-5.9) X10^6/uL Hgb 13.4 L (13.5-17.5) g/dL Hct 38.6 L (41-53) % MCV 95.2 (80-100) fL MCH 33.0 (26-34) PG MCHC 34.6 (30-36) % RDW 13.5 (11.6-14.8) % Plt Count 193 (150-400) X10^3/uL Neut % (Auto) 55.6 (50-75) % Lymph % (Auto) 31.8 (25-40) % [place] % (Auto) 7.4 (3-14) % Eos % (Auto) 4.0 (2-4) % Baso % (Auto) 1.2 (0-2) % Neut # (Auto) 4300 (0153-1544) /uL Lymph # (Auto) 2400 (9290-7960) /uL [place] # (Auto) 600 (0-900) /uL Eos # (Auto) 300 (0-450) /uL Baso # (Auto) 100 (0-100) /uL Sodium (137-145) mmol/L Potassium (3.4-5.1) mmol/L Chloride (98-107) mmol/L Carbon Dioxide (22-32) mmol/L BUN (9-20) mg/dL Creatinine (0.66-1.25) mg/dL Estimated GFR (>60) mL/min BUN/Creatinine Ratio (6-22) Glucose (80-110) mg/dL Calcium (8.4-10.2) mg/dL Total Bilirubin (0.2-1.3) mg/dL AST (17-59) IU/L ALT (<50) IU/L Alkaline Phosphatase (38-126) U/L Total Protein (6.3-8.2) g/dL Albumin (3.5-5.0) g/dL Globulin (1.7-4.1) g/dL Albumin/Globulin Ratio (1.0-2.8) TSH (0.47-4.68) uIU/mL Free T4 (0.78-2.19) ng/dL Urine Color Yellow Urine Appearance Clear Urine pH 7.0 (4.5-8.0) Ur Specific [place] 1.010 (1.000-1.035) Urine Protein Negative (Negative) Urine Glucose (UA) Negative (Negative) g/dL Urine Ketones Negative (NEGATIVE) Urine Occult Blood Negative (Negative) Urine Nitrate Negative (Negative) Urine Bilirubin Negative (NEGATIVE) Urine Urobilinogen 0.2 (0.2) E.U./dL Ur Leukocyte Esterase Negative (NEGATIVE) Urine RBC 0-1/hpf (0-5/HPF) Urine WBC 0-1/hpf (0-5/HPF) Urine Bacteria None seen (None) Ur Culture Indicated? Cult not indicated Salicylates (<20) mg/dL U Opiates 300ng/mL cut Negative (Negative) Ur Oxycodone Screen Negative (Negative) Urine Methadone Screen Negative (Negative) Acetaminophen (10-30) ug/mL Ur Barbiturates Screen Negative (Negative) U Tricyclic Antidepress Negative (Negative) Ur Phencyclidine Scrn Negative (Negative) Ur Amphetamines Screen Negative (Negative) U Methamphetamines Scrn Negative (Negative) Ur MDMA Scrn (Ecstasy) Negative (Negative) U Benzodiazepines Scrn Positive H (Negative) Urine Cocaine Screen Negative (Negative) U Marijuana (THC) Screen Positive H (Negative) Ethyl Alcohol ( - 10) mg/dL 11/09/21 11/09/21 Range/Units 17:47 17:47 WBC (4.5-11.0) X10^3/uL RBC (4.5-5.9) X10^6/uL Hgb (13.5-17.5) g/dL Hct (41-53) % MCV (80-100) fL MCH (26-34) PG MCHC (30-36) % RDW (11.6-14.8) % Plt Count (150-400) X10^3/uL Neut % (Auto) (50-75) % Lymph % (Auto) (25-40) % [place] % (Auto) (3-14) % Eos % (Auto) (2-4) % Baso % (Auto) (0-2) % Neut # (Auto) (4387-0818) /uL Lymph # (Auto) (1098-3114) /uL [place] # (Auto) (0-900) /uL Eos # (Auto) (0-450) /uL Baso # (Auto) (0-100) /uL Sodium 139 (137-145) mmol/L Potassium 4.1 (3.4-5.1) mmol/L Chloride 105 (98-107) mmol/L Carbon Dioxide 25 (22-32) mmol/L BUN 14 (9-20) mg/dL Creatinine 0.66 (0.66-1.25) mg/dL Estimated GFR > 60 (>60) mL/min BUN/Creatinine Ratio 21.2 (6-22) Glucose 94 (80-110) mg/dL Calcium 9.1 (8.4-10.2) mg/dL Total Bilirubin 0.2 (0.2-1.3) mg/dL AST 21 (17-59) IU/L ALT 15 (<50) IU/L Alkaline Phosphatase 68 (38-126) U/L Total Protein 7.5 (6.3-8.2) g/dL Albumin 4.7 (3.5-5.0) g/dL Globulin 2.8 (1.7-4.1) g/dL Albumin/Globulin Ratio 1.7 (1.0-2.8) TSH 2.31 D (0.47-4.68) uIU/mL Free T4 0.91 (0.78-2.19) ng/dL Urine Color Urine Appearance Urine pH (4.5-8.0) Ur Specific [place] (1.000-1.035) Urine Protein (Negative) Urine Glucose (UA) (Negative) g/dL Urine Ketones (NEGATIVE) Urine Occult Blood (Negative) Urine Nitrate (Negative) Urine Bilirubin (NEGATIVE) Urine Urobilinogen (0.2) E.U./dL Ur Leukocyte Esterase (NEGATIVE) Urine RBC (0-5/HPF) Urine WBC (0-5/HPF) Urine Bacteria (None) Ur Culture Indicated? Salicylates < 1.0 (<20) mg/dL U Opiates 300ng/mL cut (Negative) Ur Oxycodone Screen (Negative) Urine Methadone Screen (Negative) Acetaminophen < 10 (10-30) ug/mL Ur Barbiturates Screen (Negative) U Tricyclic Antidepress (Negative) Ur Phencyclidine Scrn (Negative) Ur Amphetamines Screen (Negative) U Methamphetamines Scrn (Negative) Ur MDMA Scrn (Ecstasy) (Negative) U Benzodiazepines Scrn (Negative) Urine Cocaine Screen (Negative) U Marijuana (THC) Screen (Negative) Ethyl Alcohol < 10 ( - 10) mg/dL MDM Narrative Medical decision making narrative: Gricelda-patient signed out to me seen evaluated by myself. Patient is quite anxious and paranoid in the room. He and he has been seen hiding under a blank et will talk to social Work. He is getting amped up the benzodiazepine did not seem to help much. He is given 1 dose of Zyprexa he slept for a few hours. He is ambulatory to the restroom and then returns to bed to sleep more. I evaluated him and spoke with him a little bit at that time. He is feeling better after some sleep. He seems much more calm. Allow him to sleep here throughout the night and re-evaluate in the morning. He said he just did not feel quite ready to go home. Patient certainly does not meet any sort of involuntary criteria at this time. We discussed options of voluntary treatment and placement however he is not quite ready to make that decision yet. 11/10/21 1:20 [employer]. Slept well last night, feels in much better control and is requesting discharge home. He is focused and appropriate at this time. His only request is prescription refills. We are contacting Dr. Christina with whom he is status care yesterday to see if refills can be confirmed and patient will be discharged home. Discharge Plan Departure Patient Disposition: Home Clinical Impression: Anxiety, Depression Instructions: DI for Anxiety -- Adult Activity Restrictions/Additional Instructions: Thank you for coming in as your new primary care doctor had suggested. Your workup in the emergency room was reassuring. At this point you do not need to be in the hospital for your anxiety and depression. Seems that a good night's sleep as made a significant difference for you. Prescriptions will be refilled. Please schedule of follow-up visit with your primary care physician. If you find that you are getting worse or develop any new symptoms, please feel free to return to the emergency department for further evaluation. Prescriptions: No Action diltiazem HCl 240 mg capsule,extended release 24 hr 240 mg PO DAILY Qty: 90 1RF atorvastatin [Lipitor] 10 mg tablet 10 mg PO HS Qty: 90 1RF lisinopril 20 mg tablet 20 mg PO DAILY Qty: 90 1RF lorazepam [Ativan] 1 mg tablet 1 mg PO TID PRN (Reason: anxiety) Qty: 10 0RF sumatriptan succinate [Imitrex] 50 mg tablet 50 mg PO PRN PRN (Reason: headache) Qty: 14 3RF Rx Instructions: Take one tablet by mouth at onset of migraine, may take additional 1 tablet in 2 hours if needed. albuterol sulfate 90 mcg/actuation HFA aerosol inhaler 1 puff INHALATION Q6H Qty: 18 2RF Rx Instructions: administer with spacer gabapentin 600 mg tablet 600 mg PO BID Referrals: Jorge Christina MD [Primary Care Provider] - Visit Report Forms: Patient Portal/API
--- NOTE | 2021-11-09 16:42 | DI.RAD.S_ITS ---
PROCEDURE: XR CHEST 1V INDICATIONS: Dyspnea TECHNIQUE: One view of the chest was acquired. COMPARISON: [facility], CR, XR CHEST 1V, 11/03/2021, 12:29. FINDINGS: Surgical changes and devices: None. Lungs and pleura: Lungs are clear. No pleural effusions or pneumothorax. Mediastinum: Mediastinal contours appear normal. Heart size is normal. Bones and chest wall: No suspicious bony lesions. Overlying soft tissues appear unremarkable. IMPRESSION: No acute cardiopulmonary abnormalities or focal airspace disease. Dictated by: Shaquille Walters M.D. on 11/09/2021 at 17:01 Approved by: Shaquille Walters M.D. on 11/09/2021 at 17:01
[2021-11-09 17:41] LABS: Appearance Urine UA CLEAR; Bilirubin Urine UA NEGATIVE (NEGATIVE); Color Urine UA YELLOW; Glucose Urine UA NEGATIVE (Negative); Ketones Urine UA NEGATIVE (NEGATIVE); Leukocyte Esterase Urine UA NEGATIVE (NEGATIVE); Nitrite Urine UA NEGATIVE (Negative); Occult Blood Urine UA NEGATIVE (Negative); Protein Urine UA NEGATIVE (Negative); Urobilinogen Urine UA 0.2 E.U./dL (0.2)
[2021-11-09 17:52] LABS: UR Morphine/Opiate cutoff 300 Negative (Negative); Ur Creatinine Normal (Normal); Ur Specific Gravity Normal (Normal); Urine Amphetamines Negative (Negative); Urine Barbiturates Negative (Negative); Urine Benzodiazepines Positive (Negative); Urine Cocaine Negative (Negative); Urine MDMA Negative (Negative); Urine Methadone Negative (Negative); Urine Methamphetamines Negative (Negative); Urine Oxycodone Negative (Negative); Urine Phencyclidine Negative (Negative); Urine Tetrahydrocannabinol Positive (Negative); Urine Tricyclic Antidepressant Negative (Negative); Urine pH Normal (Normal)
[2021-11-09 18:02] LABS: Add Manual Diff / Slide Review NO; Basophils Absolute Auto 100 /uL (0-100); Basophils Percent Auto 1.2 % (0-2); Eosinophils Absolute Auto 300 /uL (0-450); Hematocrit 38.6 % (41-53); Hemoglobin 13.4 g/dL (13.5-17.5); Lymphocytes Absolute Auto 2400 /uL (1100-4500); Lymphocytes Percent Auto 31.8 % (25-40); Mean Corpuscular HGB Conc 34.6 % (30-36); Mean Corpuscular Volume 95.2 fL (80-100); Monocytes Absolute Auto 600 /uL (0-900); Monocytes Percent Auto 7.4 % (3-14); Neutrophils Absolute Auto 4300 /uL (1500-7000); Neutrophils Percent Auto 55.6 % (50-75); Platelet Count 193 X10^3/uL (150-400); Red Blood Cell Count 4.06 X10^6/uL (4.5-5.9); Red Cell Distribution Width 13.5 % (11.6-14.8); White Blood Cell Count 7.7 X10^3/uL (4.5-11.0)
[2021-11-09 18:13] LABS: Bacteria Urine None Seen; Culture Indicated Urine Cult Not Indicated; RBC Urine 0-1/HPF (0-5/HPF); WBC Urine 0-1/HPF (0-5/HPF)
[2021-11-09 18:18] LABS: Acetaminophen < 10 ug/mL (10-30); Alanine Aminotransferase 15 IU/L (<50); Albumin 4.7 g/dL (3.5-5.0); Albumin Globulin Ratio 1.7 (1.0-2.8); Alkaline Phosphatase 68 U/L (38-126); Aspartate Aminotransferase 21 IU/L (17-59); BUN Creatinine Ratio 21.2 (6-22); Bilirubin Total 0.2 mg/dL (0.2-1.3); Blood Urea Nitrogen 14 mg/dL (9-20); Calcium 9.1 mg/dL (8.4-10.2); Carbon Dioxide 25 mmol/L (22-32); Chloride 105 mmol/L (98-107); Estimated Glomerular Filt Rate > 60 mL/min (>60); Ethanol (ETOH) < 10 mg/dL; Globulin 2.8 g/dL (1.7-4.1); Glucose 94 mg/dL (80-110); HEMOLYSIS < 15 (0-50); Potassium 4.1 mmol/L (3.4-5.1); Salicylate < 1.0 mg/dL (<20); Sodium 139 mmol/L (137-145); Total Protein 7.5 g/dL (6.3-8.2)
[2021-11-09] MEDS: LORazepam 0.5 MG TABLET 1 MG PO (18:18)
--- NOTE | 2021-11-09 18:20 | PC.NURSE ---
Pt walking around room kicking wheel stool, reports increased anxiety. Spoke calmly to pt, educated pt on fall risk r/t kicking stool, stool removed, pt responding in calm manner and sat on stretcher, updated pt on plan of care, notified Sidra PA and orders received.
[2021-11-09] MEDS: OLANZapine ODT 10 MG TAB PO (19:21)
[2021-11-09 19:33] LABS: Free T4, Direct Thyroxine 0.91 ng/dL (0.78-2.19)
[2021-11-09 19:47] LABS: Thyroid Stimulating Hormone 2.31 uIU/mL (0.47-4.68)
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
[2021-11-10 08:10] VITALS: BP 121/76; PULSE 58; RESP 24; O2SAT 97
--- NOTE | 2021-11-10 11:30 | PC.NURSE ---
Obtained patient care. Patient sleeping. resp even and unlabored. Patient awaiting POWER TRANSFORMER INSPECTOR
--- NOTE | 2021-11-10 12:55 | PC.NURSE ---
Woke patient up to provide lunch. Sure I'll take some food, not sure why I am still here updated patient on awaiting social work.
[2021-11-10 13:09] VITALS: BP 126/79; PULSE 67; O2SAT 94
--- NOTE | 2021-11-10 13:34 | CM.SWNOTE ---
WEB DESIGNER Note WEB DESIGNER enters room to meet with patient, patient states he slept the best he has all year and is feeling better. Patient endorses he is as safe as I am going to be in regards to how he feels discharging today. Patient endorses he wants to ensure he has his rx refills. WEB DESIGNER informs charge machine operator and ED provider. logistics planning engineer calls Dr. Jorge Christina office for 3 month rx refills. WEB DESIGNER shows patient crisis contact resources and lists of MH providers that accept his insurance. It is the opinion of this WEB DESIGNER that patient is safe to d/c to home. Plan: patient to d/c to home once rx refills are in place. FLORY Gutierrez
[2021-11-10 15:26] VITALS: BP 121/76; PULSE 66; RESP 16; O2SAT 98
== END 2021-11-10 15:27 | disposition home or self-care (01) ==
PROVIDERS: Physician Assistant; Emergency Provider Emergency Medicine; PCP Pediatrics
DX: F41.9 Anxiety disorder, unspecified (principal); F32.9 Major depressive disorder, single episode, unspecified; R06.00 Dyspnea, unspecified
CPT/HCPCS: 36415; 71045; 80053; 80305; 80320; 80329; 81001; 84439; 84443; 85025; 93005; 99284; G0480

== ENCOUNTER → 2022-02-08 10:44 | Outpatient (CLI) | payer OTHER, MEDICAID, SELFPAY ==
[2021-11-03 15:55] VITALS: BMI 21.6
[2022-02-08 14:59] LABS: Microalbumin Urine Random 0.8 mg/dL (0-1.6)
[2022-02-08 15:01] LABS: Creatinine Urine Random 150.3 mg/dL; Microalbumi Creatinin Ratio Ur 5.3 ug/mg CR (<30)
[2022-02-09 04:29] LABS: Valproic Acid (Depakene) Total 99 ug/mL (50-100)
== END ==
PROVIDERS: PCP Pediatrics; Referring Provider Psychiatry & Neurology Psychiatry; Visit Provider Psychiatry & Neurology Psychiatry
DX: F31.10 Bipolar disorder, current episode manic without psychotic features, unspecified (principal); I10 Essential (primary) hypertension; Z79.899 Other long term (current) drug therapy; F41.9 Anxiety disorder, unspecified
CPT/HCPCS: 36415; 80164; 82043; 82570; 99214

== ENCOUNTER → 2022-02-12 12:44 | Outpatient (CLI) | payer OTHER, MEDICAID, SELFPAY ==
[2021-11-03 15:55] VITALS: BMI 21.6
[2022-02-12 13:34] LABS: COVID19 -Nasal RAPID Negative (Negative)
== END ==
PROVIDERS: PCP Pediatrics; Referring Provider Internal Medicine; Visit Provider Internal Medicine
DX: Z20.822 Contact with and (suspected) exposure to COVID-19 (principal)
CPT/HCPCS: 87635; C9803

== ENCOUNTER → 2022-02-12 12:46 | Outpatient (CLI) | payer OTHER, MEDICAID, SELFPAY ==
[2021-11-03 15:55] VITALS: BMI 21.6
--- NOTE | 2022-02-19 07:30 | PM.PFT.1 ---
Pulmonary Function Test Referral & Results Date Patient Seen: 02/12/22 Requesting provider: Shay Franco Results: The spirometry demonstrates an FVC of 3.83 L which is 88% of predicted. The FEV1 was measured at 2.71 L which is 83% of predicted. The FEV1/FVC ratio was 71 which is 94% of predicted. Following the administration of bronchodilator there was a 10% improvement in FEV1 and a 49% improvement in FEF 25-75%. Lung volumes show an SVC of 3.53 L which is 80% of predicted. The diffusing capacity was measured at 23.68 which is 79% of predicted. No hemoglobin value was provided, so no correction for potential anemia could be made, if appropriate. The maximum voluntary ventilation was minimally reduced Interpretation: This study demonstrates possibly very mild obstructive lung disease based on reduction FEV1 and more importantly improvement after bronchodilator as noted above particularly in small airway flow. Shape a flow volume loop also probably supports the presence of some degree of obstructive lung disease There is a mild reduction in lung volumes as well suggesting mild restrictive lung disease is present which may explain some of the abnormality in the FEV1 above There is a minimal reduction diffusing capacity as well Clinical correlation suggested
== END ==
PROVIDERS: PCP Pediatrics; Referring Provider Internal Medicine Cardiovascular Disease; Visit Provider Internal Medicine Cardiovascular Disease
DX: R06.9 Unspecified abnormalities of breathing (principal); Z87.891 Personal history of nicotine dependence; J98.8 Other specified respiratory disorders
CPT/HCPCS: 94060; 94726; 94729

== ENCOUNTER → 2022-04-09 13:01 | Outpatient (CLI) | payer OTHER, MEDICAID, SELFPAY ==
[2021-11-03 15:55] VITALS: BMI 21.6
--- NOTE | 2022-04-09 13:03 | DI.ECHO.S_ITS ---
[facility] +---------+ : : [address] : : : : [id number] : : : : Phone: [phone]+ Echocardiogram Report + + :Name: LOULOU GOETZ Study Date: 04/09/2022 Height: 68 in : :[facility] ReadingLocation: Weight: 150 lb : : Gender: Male BSA: 1.8 m2 : :: 1960 Age: 61 yrs BP: 115/78 mmHg: :Reason For Study: Palpitations : :Ordering Physician: JAGRUTI, : :MARIANGEL Performed By: Gee Andersen : :Referring: MARIANGEL CHAND : + + Interpretation Summary The left ventricle is normal in size and wall thickness. Left ventricular systolic function is normal. The ejection fraction is estimated to be 55-60%. The right ventricle is normal in size and function. There is mild tricuspid regurgitation. The right ventricular systolic pressure is estimated to be at least 20 mmHg based on an estimated right atrial pressure of 3 mm Hg. Procedure: A two-dimensional transthoracic echocardiogram with color flow and Doppler was performed. The study quality was technically adequate. Comparison is made with the echocardiogram of 07/26/2013. The patient was in normal sinus rhythm during the exam. The heart rate ranged between 54-60 bpm during the study. Left Ventricle: The left ventricle is normal in size and wall thickness. There is no thrombus. Left ventricular systolic function is normal. The ejection fraction is estimated to be 55-60%. There are no focal wall motion abnormalities. Diastolic parameters suggest a relaxation abnormality of the left ventricle, consistent with probable normal filling pressures. Right Ventricle: The right ventricle is normal in size and function. Atria: Both atria are normal in size. The interatrial septum grossly appears intact with no obvious evidence for an atrial septal defect. Mitral Valve: The mitral valve is normal in structure and function. There is trace mitral regurgitation. Aortic Valve: The aortic valve is normal in structure and function. The aortic valve is trileaflet. There is no aortic valve stenosis. There is trace aortic regurgitation. Tricuspid Valve: The tricuspid valve is normal. There is mild tricuspid regurgitation. The right ventricular systolic pressure is estimated to be at least 20 mmHg based on an estimated right atrial pressure of 3 mm Hg. Pulmonic Valve: The pulmonic valve is normal in structure and function. There is trace pulmonic regurgitation. Great Vessels: The aortic root is normal size. The dimensions of the ascending aorta are normal. The IVC is of normal diameter and collapses greater than 50% with a sniff. This suggests a low right atrial pressure of 3 mm Hg. Pericardium/ Pleura There is no pericardial effusion. There is no pleural effusion. MMode/2D Measurements & Calculations LVIDd: 4.8 cm LVOT diam: 2.2 cm LVIDs: 3.3 cm Ao root diam: 3.1 cm FS: 31.0 % IVSd: 0.99 cm LVPWd: 0.95 cm LV gonsales. diameter/BSA (cm/m^2): 2.6 LV sys. diameter/BSA (cm/m^2): 1.8 LA A2 area: 18.3 cm2 RA long axis: 4.7 cm LA A4 area: 18.9 cm2 RA area: 15.1 cm2 LA length (vol): 5.6 cm RA vol: 41.4 ml LA vol: 52.6 ml RA : 22.9 ml/m2 LA vol index: 29.1 ml/m2 TAPSE: 2.5 cm Doppler Measurements & Calculations LVOT Max Prem: 84.8 cm/sec MV E max prem: 65.6 cm/sec LV V1 max P.9 mmHg MV A max prem: 71.8 cm/sec LV V1 VTI: 16.2 cm MV E/A: 0.91 Med Peak E' Prem: 6.8 cm/sec E/E' med: 9.6 Lat Peak E' Prem: 7.3 cm/sec E/E' lat: 9.0 E/e' average: 9.3 MV dec time: 0.27 sec TR max prem: 206.2 cm/sec SV(LVOT): 60.2 ml TR max P.0 mmHg Reading Physician:03:52 PM
[2022-04-09 14:24] LABS: COVID19 -Nasal RAPID Negative (Negative)
--- NOTE | 2022-04-12 08:29 | DI.NM.S_ITS ---
DATE OF SERVICE: PROCEDURE: Exercise stress test. INDICATION: Shortness of breath, underlying hypertension and hyperlipidemia. CARDIAC STRESS: Patient underwent exercise stress test under the supervision of an attending staff using standard protocol. The patient walked on Conrado protocol for 9 minutes and 01 seconds, achieved maximum heart rate of 145, which was 92 percent of target heart rate. Resting blood pressure 130/70 and peak blood pressure 218/90. Achieved 10.1 METs of workload and FREDERICK -9 percent. No chest pain or anginal symptoms. The patient had some dyspnea and fatigue. Baseline rhythm was sinus and has intermittent isolated PVCs at rest. PVCs got suppressed during exercise and reappeared in the recovery. No ventricular tachycardia seen. CONCLUSION: 1. Exercise stress test is negative for inducible ischemia. 2. Good exercise tolerance. Functional aerobic impairment -9 percent. Walked on Conrado protocol for 9 minutes and 1 second. No ischemic electrocardiographic changes. Resting isolated premature ventricular contractions which got suppressed during exercise and reappeared in recovery. No ventricular tachycardia. No chest pain. Had some shortness of breath and fatigue. Overall low-risk exercise stress test. Austyn Camp - DERIC/elizabeth/APURVA doc#: [id number]/job#: [id number] dd: 04/09/2022 17:17:00 dt: 04/09/2022 18:59:00 DICTATING /COPIES TO: Shay Franco MD COPIES MNE: YRIS;
== END ==
PROVIDERS: PCP Family Medicine; Referring Provider Internal Medicine Cardiovascular Disease; Visit Provider Internal Medicine Cardiovascular Disease
DX: I07.1 Rheumatic tricuspid insufficiency (principal); R06.00 Dyspnea, unspecified; R00.2 Palpitations; R06.02 Shortness of breath; I10 Essential (primary) hypertension; E78.5 Hyperlipidemia, unspecified; Z20.822 Contact with and (suspected) exposure to COVID-19
CPT/HCPCS: 87635; 93017; 93306

== ENCOUNTER → 2022-04-20 12:19 | Outpatient (CLI) | payer OTHER, MEDICAID, SELFPAY ==
[2021-11-03 15:55] VITALS: BMI 21.6
[2022-04-20 14:11] LABS: Alanine Aminotransferase 24 IU/L (<50); Albumin 4.5 g/dL (3.5-5.0); Albumin Globulin Ratio 1.4 (1.0-2.8); Alkaline Phosphatase 68 U/L (38-126); Aspartate Aminotransferase 27 IU/L (17-59); BUN Creatinine Ratio 16.3 (6-22); Bilirubin Total 0.4 mg/dL (0.2-1.3); Blood Urea Nitrogen 15 mg/dL (9-20); Calcium 9.1 mg/dL (8.4-10.2); Carbon Dioxide 28 mmol/L (22-32); Chloride 106 mmol/L (98-107); Estimated Glomerular Filt Rate > 60 mL/min (>60); Globulin 3.3 g/dL (1.7-4.1); Glucose 88 mg/dL (80-110); HEMOLYSIS < 15 (0-50); Potassium 4.4 mmol/L (3.4-5.1); Sodium 142 mmol/L (137-145); Total Protein 7.8 g/dL (6.3-8.2)
[2022-04-21 04:16] LABS: Valproic Acid (Depakene) Total 40 ug/mL (50-100)
[2022-04-23 11:27] LABS: Lamotrigine Lamictal 7.8 ug/mL (2.0-20.0)
== END ==
PROVIDERS: PCP Family Medicine; Referring Provider Psychiatry & Neurology Psychiatry; Visit Provider Psychiatry & Neurology Psychiatry
DX: F31.10 Bipolar disorder, current episode manic without psychotic features, unspecified (principal); F41.9 Anxiety disorder, unspecified; Z79.899 Other long term (current) drug therapy
CPT/HCPCS: 36415; 80053; 80164; 80175; 99214

== ENCOUNTER → 2022-07-05 09:35 | Outpatient (CLI) | payer OTHER, MEDICAID, SELFPAY ==
[2021-11-03 15:55] VITALS: BMI 21.6
[2022-07-06 07:19] LABS: Valproic Acid (Depakene) Total 39 ug/mL (50-100)
[2022-07-08 15:31] LABS: Lamotrigine Lamictal 8.4 ug/mL (2.0-20.0)
== END ==
PROVIDERS: PCP Family Medicine; Referring Provider Psychiatry & Neurology Psychiatry; Visit Provider Psychiatry & Neurology Psychiatry
DX: F31.10 Bipolar disorder, current episode manic without psychotic features, unspecified (principal); Z79.899 Other long term (current) drug therapy
CPT/HCPCS: 36415; 80164; 80175

== ENCOUNTER → 2022-08-11 15:00 | Outpatient (CLI) | payer OTHER, MEDICAID, SELFPAY ==
[2021-11-03 15:55] VITALS: BMI 21.6
[2022-08-11 15:19] LABS: Add Manual Diff / Slide Review NO; Basophils Absolute Auto 0 /uL (0-100); Basophils Percent Auto 0.7 % (0-2); Eosinophils Absolute Auto 300 /uL (0-450); Eosinophils Percent Auto 4.2 % (2-4); Hematocrit 39.8 % (41-53); Hemoglobin 13.2 g/dL (13.5-17.5); Lymphocytes Absolute Auto 2500 /uL (1100-4500); Lymphocytes Percent Auto 35.6 % (25-40); Mean Corpuscular HGB Conc 33.2 % (30-36); Mean Corpuscular Hemoglobin 33.1 PG (26-34); Mean Corpuscular Volume 99.8 fL (80-100); Monocytes Absolute Auto 500 /uL (0-900); Monocytes Percent Auto 7.1 % (3-14); Neutrophils Absolute Auto 3700 /uL (1500-7000); Neutrophils Percent Auto 52.4 % (50-75); Platelet Count 197 X10^3/uL (150-400); Red Blood Cell Count 3.99 X10^6/uL (4.5-5.9); Red Cell Distribution Width 13.4 % (11.6-14.8); White Blood Cell Count 7.1 X10^3/uL (4.5-11.0)
[2022-08-11 15:49] LABS: Blood Urea Nitrogen 12 mg/dL (9-20); Calcium 8.9 mg/dL (8.4-10.2); Carbon Dioxide 30 mmol/L (22-32); Chloride 105 mmol/L (98-107); Estimated Glomerular Filt Rate > 60 mL/min (>60); Glucose 84 mg/dL (80-110); HEMOLYSIS < 15 (0-50); Potassium 4.4 mmol/L (3.4-5.1); Sodium 142 mmol/L (137-145)
[2022-08-11 16:45] LABS: Creatinine Urine Random 118.6 mg/dL
[2022-08-11 16:49] LABS: Microalbumi Creatinin Ratio Ur 7.5 ug/mg CR (<30); Microalbumin Urine Random 0.9 mg/dL (0-1.6)
[2022-08-12 07:47] LABS: Valproic Acid (Depakene) Total 75 ug/mL (50-100)
== END ==
PROVIDERS: PCP Family Medicine; Referring Provider Psychiatry & Neurology Psychiatry; Visit Provider Psychiatry & Neurology Psychiatry
DX: F31.10 Bipolar disorder, current episode manic without psychotic features, unspecified (principal); I10 Essential (primary) hypertension; Z79.899 Other long term (current) drug therapy
CPT/HCPCS: 36415; 80048; 80164; 80175; 82043; 82570; 85025

== ENCOUNTER 2022-11-24 14:36 | Emergency (ER) | payer OTHER, MEDICAID, SELFPAY ==
[2021-11-03 15:55] VITALS: BMI 21.6
[2022-11-24] VITALS (10 sets, daily range): BP systolic 114–118; BP diastolic 58–66; PULSE 52–73; RESP 9–19; TEMP 36.9; O2SAT 96–97; BMI 24.3
--- NOTE | 2022-11-24 14:52 | DI.RAD.S_ITS ---
PROCEDURE: XR CHEST 1V INDICATIONS: chest pain TECHNIQUE: One view of the chest was acquired. COMPARISON: [facility], CR, XR CHEST 1V, 11/09/2021, 16:49. FINDINGS: Surgical changes and devices: None. Lungs and pleura: Lungs are clear. Mild chronic diffuse interstitial prominence. No pleural effusions or pneumothorax. Mediastinum: Mediastinal contours appear normal. Heart size is normal. Bones and chest wall: No suspicious bony lesions. Overlying soft tissues appear unremarkable. IMPRESSION: No evidence acute pulmonary process. Dictated by: Elliott Rios M.D. on 11/24/2022 at 15:51 Approved by: Elliott Rios M.D. on 11/24/2022 at 16:10
[2022-11-24 15:19] LABS: Add Manual Diff / Slide Review NO; Basophils Absolute Auto 100 /uL (0-100); Basophils Percent Auto 1.6 % (0-2); Eosinophils Absolute Auto 300 /uL (0-450); Eosinophils Percent Auto 4.2 % (2-4); Hematocrit 38.6 % (41-53); Hemoglobin 13.4 g/dL (13.5-17.5); Lymphocytes Absolute Auto 2500 /uL (1100-4500); Lymphocytes Percent Auto 30.6 % (25-40); Mean Corpuscular HGB Conc 34.7 % (30-36); Mean Corpuscular Volume 97.9 fL (80-100); Monocytes Absolute Auto 700 /uL (0-900); Monocytes Percent Auto 8.4 % (3-14); Neutrophils Absolute Auto 4400 /uL (1500-7000); Neutrophils Percent Auto 55.2 % (50-75); Platelet Count 229 X10^3/uL (150-400); Red Blood Cell Count 3.95 X10^6/uL (4.5-5.9); Red Cell Distribution Width 12.8 % (11.6-14.8)
[2022-11-24 15:32] LABS: Alanine Aminotransferase 26 IU/L (<50); Albumin 4.5 g/dL (3.5-5.0); Albumin Globulin Ratio 1.5 (1.0-2.8); Alkaline Phosphatase 90 U/L (38-126); Aspartate Aminotransferase 29 IU/L (17-59); BUN Creatinine Ratio 18.5 (6-22); Bilirubin Total 0.4 mg/dL (0.2-1.3); Blood Urea Nitrogen 15 mg/dL (9-20); Calcium 8.8 mg/dL (8.4-10.2); Carbon Dioxide 26 mmol/L (22-32); Chloride 105 mmol/L (98-107); Creatine Kinase 115 U/L (55-170); Estimated Glomerular Filt Rate > 60 mL/min (>60); Glucose 109 mg/dL (80-110); HEMOLYSIS < 15 (0-50); Lipase 114 U/L (23-300); Potassium 4.2 mmol/L (3.4-5.1); Sodium 138 mmol/L (137-145); Total Protein 7.5 g/dL (6.3-8.2)
[2022-11-24] MEDS: SODIUM CHLORIDE 0.9% 1,000 ML 150 ML IV (15:35)
[2022-11-24 15:41] LABS: NT-proBNP (BNP-Adult 18+) 91 pg/mL (<125)
[2022-11-24 15:44] LABS: Troponin I < 0.012 ng/mL (0.01-0.034)
--- NOTE | 2022-11-24 16:37 | ED.CHESTPAIN ---
HPI - Chest Pain General Chief Complaint: Chest Pain Stated Complaint: tightness in chest T-30 Time Seen by Provider: 11/24/22 14:52 Source: patient Mode of arrival: Ambulatory History of Present Illness HPI narrative: 62-year-old male former smoker presents with chest pain and shortness of breath for the past month which has been rather constant for the past month. There is no exertional component, no exercise intolerance, no radiation of his symptoms. Not dizzy, weak or lightheaded. No fever or chills. No nausea or vomiting. Patient does state when he lays flat he seems to think that his symptoms might be worse. Related Data Previous Rx's Medication Instructions Recorded albuterol sulfate 90 mcg/actuation 1 puff inhalation Q6H #18 grams 11/10/21 aerosol inhaler sumatriptan succinate 50 mg tablet 50 mg PO PRN PRN headache #14 tabs 11/10/21 (Imitrex) pantoprazole 40 mg tablet,delayed 40 mg PO DAILY #90 tabs 01/21/22 release diltiazem HCl 120 mg capsule,24 120 mg PO DAILY #90 caps 08/17/22 hr,extended release lisinopril 20 mg tablet 20 mg PO DAILY #90 tabs 09/02/22 atorvastatin 10 mg tablet 10 mg PO BEDTIME #30 tabs 10/25/22 lamotrigine 100 mg tablet 200 mg PO DAILY #180 tabs 11/09/22 lorazepam 1 mg tablet (Ativan) 1 mg PO BID PRN anxiety #180 tabs 11/09/22 olanzapine 5 mg tablet 5 mg PO BEDTIME #90 tabs 11/09/22 propranolol 10 mg tablet 10 mg PO BID #60 tabs 11/09/22 Allergies Allergy/AdvReac Type Severity Reaction Status Date / Time venom-wasp Allergy Severe swelling Verified 09/02/22 16:21 codeine Allergy Intermediate HIVES Verified 09/02/22 16:21 divalproex sodium Allergy Intermediate rash Verified 09/02/22 16:21 [From Depakote] omeprazole Allergy Intermediate HIVES Verified 09/02/22 16:21 venom-honey bee Allergy Mild SWELLING Verified 09/02/22 16:21 [bee venom (honey bee)] Review of Systems Review of Systems Narrative: GENERAL: Denies chills, fatigue, malaise, fever, sweats. HEENT: Denies sinus pain, ear pain, sore throat, difficulty swallowing, dizziness. RESPIRATORY: Denies dyspnea, cough, wheezing, hemoptysis, sputum. CARDIOVASCULAR: See HPI GASTROINTESTINAL: Denies nausea, vomiting, abdominal pain, diarrhea, constipation, melena. : Denies dysuria, frequency, incontinence, hematuria, urinary retention. MUSCULOSKELETAL: denies weakness, joint pain, or bony pain SKIN: Denies rash, skin lesions, or other NEUROLOGIC: Denies weakness, headache, numbness, change in speech, confusion, seizures, incoordination. PSYCHIATRIC: No concerning psychosocial issues. 12 point review of systems is negative except for those stated above Patient History Medical History (Updated 11/24/22 @ 17:40 by Mani Watkins DO) Agitation Anxiety (~2009) Asthma Cellulitis Chronic hepatitis C without hepatic coma Depression (~2009) Fast heart beat (~2013) Finger injury Foot pain (~2009) Fractures (~2007) Gastroparesis Genital herpes (~1999) GERD (gastroesophageal reflux disease) GERD (gastroesophageal reflux disease) Hay fever Headache (~1982) Hepatitis C (~2008) Homicidal ideation Inguinal hernia Migraines (~1982) Multiple neurological symptoms (03/27/15) Neuropathy Peptic ulcer disease Screening for colon cancer Seasonal allergies Shoulder pain Sinusitis Stomach ulcer Surgical History History of surgery (1997) Status post colonoscopy (~10/2008) Social History household members: significant other Smoking Status: Former smoker alcohol intake: former substance use type: marijuana Smoking Status: Former smoker alcohol intake frequency: holidays/special occasions only Substance Use Type: marijuana and prescription drug Exam Narrative Exam Narrative: GENERAL: [62] year old patient appears stated age. Well-developed patient, in mild distress. HEAD: Atraumatic. Normocephalic. EYES: Pupils equal round and reactive. Extraocular motions intact. No scleral icterus. No injection or drainage. ENT: Nose without bleeding, purulent drainage. Throat without erythema, tonsillar hypertrophy or exudate. Airway patent. NECK: Trachea midline. Non tender CARDIOVASCULAR: Regular rate and rhythm without murmurs, gallops, or rubs. RESPIRATORY: Decreased breath sounds bilaterally with prolonged expiratory phase and faint wheezing in bilateral bases GASTROINTESTINAL: Abdomen soft, non-tender, nondistended. EXTREMITIES: No edema or joint tenderness. BACK: Nontender without deformity or crepitance. No flank tenderness. NEURO: AOx3. SKIN: No rash or erythema of visible areas Initial Vital Signs Initial Vital Signs: Vital Signs Temperature 98.5 F 11/24/22 14:46 Pulse Rate 73 11/24/22 14:46 Respiratory Rate 16 11/24/22 14:46 Blood Pressure 118/58 L 11/24/22 14:46 Pulse Oximetry 97 11/24/22 14:46 Oxygen Delivery Method Room Air 11/24/22 14:46 Scores HEART Score Heart Score history: Slightly Suspicious Heart Score EKG: Normal Heart Score Age: 45-64 years old Heart Score risk factors: > 3 risk factors or hx of atherosclerotic disease Heart Score troponin: < or = to normal limit Heart Score Total: 3 Course Orders Ordered: Discontinued Medications Albuterol/Ipratropium (Albuterol/Ipratropium 3 Ml Ampul) 3 ml INH NOW ONE Stop: 11/24/22 16:43 Last Admin: 11/24/22 17:05 Dose: 3 ml Documented By: CHIKIS Sodium Chloride (Normal Saline 0.9%) 1,000 mls @ 150 mls/hr IV CONT BRIE Last Admin: 11/24/22 15:35 Dose: 150 mls/hr Documented By: SUKHDEEP Methylprednisolone (Methylprednisolone 125 Mg/2 Ml Vial) 125 mg IV NOW ONE Stop: 11/24/22 16:43 Last Admin: 11/24/22 17:02 Dose: 125 mg Documented By: SUKHDEEP Vital Signs Vital signs: Vital Signs - 8 hr 11/24/22 14:46 11/24/22 17:06 Temperature 98.5 F Pulse Rate 73 56 L Respiratory Rate 16 Blood Pressure 118/58 L Pulse Oximetry 97 96 Oxygen Delivery Method Room Air Room Air MDM - Chest Pain Lab Data 11/24/22 15:09 11/24/22 15:09 Labs: Lab Results 11/24/22 11/24/22 11/24/22 Range/Units 15:09 15:09 15:09 WBC 8.0 (4.5-11.0) X10^3/uL RBC 3.95 L (4.5-5.9) X10^6/uL Hgb 13.4 L (13.5-17.5) g/dL Hct 38.6 L (41-53) % MCV 97.9 (80-100) fL MCH 34.0 (26-34) PG MCHC 34.7 (30-36) % RDW 12.8 (11.6-14.8) % Plt Count 229 (150-400) X10^3/uL Neut % (Auto) 55.2 (50-75) % Lymph % (Auto) 30.6 (25-40) % [place] % (Auto) 8.4 (3-14) % Eos % (Auto) 4.2 H (2-4) % Baso % (Auto) 1.6 (0-2) % Neut # (Auto) 4400 (1175-5854) /uL Lymph # (Auto) 2500 (6304-1225) /uL [place] # (Auto) 700 (0-900) /uL Eos # (Auto) 300 (0-450) /uL Baso # (Auto) 100 (0-100) /uL Sodium 138 (137-145) mmol/L Potassium 4.2 (3.4-5.1) mmol/L Chloride 105 (98-107) mmol/L Carbon Dioxide 26 (22-32) mmol/L BUN 15 (9-20) mg/dL Creatinine 0.81 (0.66-1.25) mg/dL Estimated GFR > 60 (>60) mL/min BUN/Creatinine Ratio 18.5 (6-22) Glucose 109 (80-110) mg/dL Calcium 8.8 (8.4-10.2) mg/dL Total Bilirubin 0.4 (0.2-1.3) mg/dL AST 29 (17-59) IU/L ALT 26 (<50) IU/L Alkaline Phosphatase 90 (38-126) U/L Total Creatine Kinase 115 (55-170) U/L Troponin I < 0.012 (0.01-0.034) ng/mL NT-Pro-B Natriuret Pep 91 (<125) pg/mL Total Protein 7.5 (6.3-8.2) g/dL Albumin 4.5 (3.5-5.0) g/dL Globulin 3.0 (1.7-4.1) g/dL Albumin/Globulin Ratio 1.5 (1.0-2.8) Lipase 114 (23-300) U/L MDM Narrative Medical decision making narrative: [62] year old patient presents with chest pain worse when he lays down and shortness of breath for well over a month Multiple etiologies for patient's symptoms considered including, but not limited to: [Cardiac ischemia versus reactive airway disease versus pneumonia versus CHF versus other] Prior Charts reviewed in our EMR Primary Historian: patient Labs reviewed and interpreted by myself: No significant abnormalities, troponin x2 negative Imaging reviewed: Chest x-ray without obvious abnormal findings Patient's history and physical exam are reassuring, patient in no distress Patient's symptoms improved over duration of stay with above-stated therapies. Heart score low, no exertional symptoms, troponin x2 negative, no exercise intolerance. No travel, injury, cancer, tachycardia, pleuritic-type chest pain, no hemoptysis, no lower extremity pain or swelling, pulmonary embolism considered but thought unlikely. Patient does have some improvement after the use of bronchodilators. Unclear etiology but no obvious indication for the need of an immediate intervention. Patient encouraged to follow closely with his primary care provider. Findings and discharge diagnosis discussed with patient/family followed by verbalization of understanding Return precautions discussed with patient/family whom verbalize understanding of diagnosis and plan Discharge Plan Departure Patient Disposition: Home Clinical Impression: Atypical chest pain Instructions: DI for Atypical Chest Pain Activity Restrictions/Additional Instructions: *You have been diagnosed with [atypical chest pain. As we discussed there is no sign of heart attack, pneumonia or heart failure. *What to do: *Please continue to take your regular medications as directed. *Please follow up with your primary care provider in 2-3 days, call for an appointment. Let them know you were seen in the Emergency Department and that we ask that you be seen in follow up. We will electronically transmit a record of today's note if your PCP is in our system *If you do not have a primary care provider please contact the [facility] Resource line at [phone]. They will ask some questions about your medical history and help get you set up with a doctor in the community. *Return to Emergency Department if you should have any new, worsening or concerning symptoms, such as [fever greater than 101 F, shaking chills, worsening pain, persistent vomiting or other bothersome symptoms] Prescriptions: No Action olanzapine 5 mg tablet 5 mg PO BEDTIME Qty: 90 3RF lamotrigine 100 mg tablet 200 mg PO DAILY Qty: 180 3RF lorazepam [Ativan] 1 mg tablet 1 mg PO BID PRN (Reason: anxiety) Qty: 180 0RF propranolol 10 mg tablet 10 mg PO BID Qty: 60 1RF sumatriptan succinate [Imitrex] 50 mg tablet 50 mg PO PRN PRN (Reason: headache) Qty: 14 3RF Rx Instructions: Take one tablet by mouth at onset of migraine, may take additional 1 tablet in 2 hours if needed. albuterol sulfate 90 mcg/actuation HFA aerosol inhaler 1 puff INHALATION Q6H Qty: 18 2RF Rx Instructions: administer with spacer pantoprazole 40 mg tablet,delayed release (DR/EC) 40 mg PO DAILY Qty: 90 3RF diltiazem HCl 120 mg capsule,extended release 24 hr 120 mg PO DAILY Qty: 90 1RF atorvastatin 10 mg tablet 10 mg PO BEDTIME Qty: 30 0RF Rx Instructions: APPOINTMENT DUE FOR FURTHER REFILLS. 10/25/22 lisinopril 20 mg tablet 20 mg PO DAILY Qty: 90 0RF Referrals: Paradise Gonzales DO [Primary Care Provider] - Stand Alone Forms: Patient Portal/API
[2022-11-24] MEDS: methylPREDNISolone 125 MG/2 ML VIAL IV (17:02)
[2022-11-24] MEDS: ALBUTEROL/IPRATROPIUM 3 ML AMPUL INH (17:05)
== END 2022-11-24 18:19 | disposition home or self-care (01) ==
PROVIDERS: Emergency Provider Emergency Medicine; PCP Family Medicine
DX: R07.89 Other chest pain (principal); R06.02 Shortness of breath
CPT/HCPCS: 36415; 71045; 80053; 82550; 83690; 83880; 84484; 85025; 93005; 93010; 94640; 96374; 99284; J2930

== ENCOUNTER → 2022-12-16 09:51 | Outpatient (CLI) | payer OTHER, MEDICAID, SELFPAY ==
[2021-11-03 15:55] VITALS: BMI 21.6
[2022-12-16 11:14] LABS: Cholesterol 160 mg/dL (140-199); HDL Cholesterol 33 mg/dL (40-60); LDL Cholesterol Calculated 95 mg/dL (<100); Triglycerides 160 mg/dL (35-150)
[2022-12-16 11:47] LABS: Prostate Specific Antigen Scrn 0.833 ng/mL (0.1-4.0)
== END ==
PROVIDERS: PCP Family Medicine; Referring Provider Family Medicine; Visit Provider Family Medicine
DX: I10 Essential (primary) hypertension (principal); Z12.5 Encounter for screening for malignant neoplasm of prostate; R10.13 Epigastric pain
CPT/HCPCS: 36415; 80061; 99214; G0103

== ENCOUNTER 2023-02-01 07:27 | Day surgery (SDC) | payer OTHER, MEDICAID, SELFPAY ==
[2021-11-03 15:55] VITALS: BMI 21.6
--- NOTE | 2023-02-01 | PATH_ITS ---
[facility] Accession Number: [id number] No. of containers..01 Tissue . 01 Material submitted: . gastrointestinal site - GASTRIC . 01 Diagnosis: Gastric, Biopsy: Gastric mucosa with no significant diagnostic alteration. No Helicobacter pylori organisms identified on H/E slide. No intestinal metaplasia, dysplasia, or malignancy identified. . MRV 02/09/2023 1128 Local . 01 Electronically signed: . Brenda Lange MD, Pathologist NPI- [id number] . 01 Gross description: . GASTRIC: Received in formalin is 2 fragment(s) of vaca, soft tissue measuring 0.3 x 0.1 x 0.1 cm to 0.2 x 0.1 x 0.1 cm submitted entirely in 1 cassette(s) /AAY 02/03/2023 2347 Local . 01 Pathologist provided ICD-10: R19.8 . 01 CPT . 882929 Specimen Comment: A courtesy copy of this report has been sent to [phone] Performed at: 01 [facility] [address] [place] [address] [id number] MD Parish Hebert MD Phone: [phone]
[2023-02-01] MEDS: LACTATED RINGERS 1,000 ML 200 ML IV (07:43)
[2023-02-01 07:44] VITALS: BP 133/79; PULSE 58; RESP 16; TEMP 36.7; O2SAT 99; BMI 22.8
--- NOTE | 2023-02-01 08:44 | P.HP_ITS ---
History of Present Illness History of Present Illness Date Patient Seen: 02/01/23 Time Patient Seen: 08:44 Chief complaint: EGD Narrative: 62-year-old man history of gastric ulcer and Zenker's diverticulum here for diagnostic EGD for a diagnosis of chronic epigastric pain. No interval change in health. Please refer to the H and P from November 2022 for further detail. [facility] Medical History Agitation Anxiety (~2009) Asthma Cellulitis Chronic hepatitis C without hepatic coma Depression (~2009) Fast heart beat (~2013) Finger injury Foot pain (~2009) Fractures (~2007) Gastroparesis Genital herpes (~1999) GERD (gastroesophageal reflux disease) GERD (gastroesophageal reflux disease) Hay fever Headache (~1982) Hepatitis C (~2008) Homicidal ideation Inguinal hernia Migraines (~1982) Multiple neurological symptoms (03/27/15) Neuropathy Peptic ulcer disease Screening for colon cancer Seasonal allergies Shoulder pain Sinusitis Stomach ulcer Surgical History History of surgery (1997) Status post colonoscopy (~10/2008) Social History household members: significant other Smoking Status: Former smoker alcohol intake: former substance use type: marijuana Meds Home Medications and Allergies Home Medications Medication Instructions Recorded Confirmed Type sumatriptan succinate 50 mg tablet 50 mg PO PRN PRN headache #14 tabs 11/10/21 02/01/23 Rx (Imitrex) lisinopril 20 mg tablet See Rx Instructions .Route 12/02/22 02/01/23 Rx .COMPLEX #90 tabs atorvastatin 10 mg tablet 10 mg PO BEDTIME #90 tabs 01/05/23 02/01/23 Rx diltiazem HCl 120 mg capsule,24 120 mg PO DAILY #90 caps 01/05/23 02/01/23 Rx hr,extended release pantoprazole 40 mg tablet,delayed 40 mg PO DAILY #90 tabs 01/05/23 02/01/23 Rx release Allergies Allergy/AdvReac Type Severity Reaction Status Date / Time venom-wasp Allergy Severe swelling Verified 02/01/23 07:38 codeine Allergy Intermediate HIVES Verified 02/01/23 07:38 divalproex sodium Allergy Intermediate rash Verified 02/01/23 07:38 [From Depakote] omeprazole Allergy Intermediate HIVES Verified 02/01/23 07:38 venom-honey bee Allergy Mild SWELLING Verified 02/01/23 07:38 [bee venom (honey bee)] Exam Vital Signs (past 8 hours): - 02/01/23 07:44 Temperature 98.1 F Pulse Rate 58 L Respiratory Rate 16 Blood Pressure 133/79 Pulse Oximetry 99 Oxygen Delivery Method Room Air Oxygen Delivery Method Room Air Narrative Exam Narrative: General adult man alert oriented no acute distress Abdomen soft nontender nondistended Assessment & Plan Assessment and plan (1) Epigastric pain: Status: Acute Assessment & Plan narrative: 62-year-old man history of Zenker's diverticulum gastric ulcer here for diagnostic esophagoduodenoscopy for chronic epigastric pain. Of the operation was discussed. Operative risks including hemorrhage, intestinal injury, anesthetic complication were discussed. Questions have been answered he is in agreement with this plan. Provides his written and verbal consent to proceed.
[2023-02-01 09:07] VITALS: BP 129/80; PULSE 67; RESP 21; TEMP 36.8; O2SAT 98
--- NOTE | 2023-02-01 09:12 | PM.OP.EGD ---
Operative Date/Time/Diagnoses Date of procedure: 02/01/23 Time of procedure: 09:12 Pre-op diagnosis: Zenker's diverticulum Epigastric pain Post-op diagnosis: other (Gastritis) Procedure & Clinicians Study performed: Esophagoduodenoscopy Same procedure as scheduled: Yes Indications: 62-year-old man history of Zenker's diverticulum and gastric ulcer here for evaluation of epigastric pain. Surgeon: Kolby Guillory Procedure Notes Procedure in detail: The history and physical was performed/updated and the patient is ASA class is 2. The procedure was discussed in detail with the patient. Potential risks complications including infection, bleeding, missed diagnosis, perforation, need for surgery, and were explained. Their questions were answered and informed consent was obtained. Patient placed in left lateral decubitus position. Time out was performed. Procedural sedation was administered by Anesthesia. A bite block was placed. the scope was inserted into the mouth and advanced through the esophagus and into the stomach. The stomach was notable for strands of blood clots within the body. Close examination demonstrated gastritis no distinct ulceration. Biopsy of the stomach was performed with forceps. The pylorus was intubated and the duodenum was normal to the 2nd portion. The scope was withdrawn into the esophagus the Z line was seen at 40 cm from the incisions. Proximal esophagus was notable for Zenker's diverticulum. Stomach was desufflated and scope removed. The patient tolerated the procedure well and will be discharged when they meet criteria. Findings: gastritis Specimen(s): other (Gastric) Impression: Gastritis Post-procedure Plan for aftercare: Increase PPI to 40 mg of omeprazole twice daily Disposition: same day surgery
[2023-02-01 09:13] VITALS: BP 130/91; PULSE 61; RESP 12; TEMP 36.8; O2SAT 98
[2023-02-01 09:20] VITALS: BP 140/88; PULSE 64; RESP 10; TEMP 36.8; O2SAT 98
[2023-02-01 09:24] VITALS: BP 138/84; PULSE 65; RESP 12; TEMP 36.8; O2SAT 98
--- NOTE | 2023-02-01 09:31 | SUR.PHASEII ---
Pt given discharge instructions. Pt states he understands discharge instructions. Howie Pearson RN removed IV. Pt denies any complaints.
== END 2023-02-01 09:33 | disposition home or self-care (01) ==
PROVIDERS: PCP Family Medicine; Referring Provider Surgery; Visit Provider Surgery
PROC: 0DJ08ZZ Inspection of Upper Intestinal Tract, Via Natural or Artificial Opening Endoscopic (ICD-10-PCS; CPT 43235; principal; 2023-02-01 08:45)
DX: K22.5 Diverticulum of esophagus, acquired (principal); K29.70 Gastritis, unspecified, without bleeding
CPT/HCPCS: 43239; J2704

== ENCOUNTER → 2023-03-02 11:49 | Outpatient (CLI) | payer OTHER, MEDICAID, SELFPAY ==
[2021-11-03 15:55] VITALS: BMI 21.6
--- NOTE | 2023-03-02 11:51 | DI.RAD.S_ITS ---
PROCEDURE: XR SHOULDER RT MIN 2V INDICATIONS: SHOULDER PAIN TECHNIQUE: 3 views of the shoulder were acquired. COMPARISON: None. FINDINGS: Bones: No fractures or dislocations. No suspicious bony lesions. Visualized ribs appear intact. Soft tissues: No suspicious soft tissue calcifications. IMPRESSION: Unremarkable right shoulder radiographs Approved by: Jorge Resendez M.D. on 03/02/2023 at 16:45
== END ==
PROVIDERS: PCP Family Medicine; Referring Provider Family Medicine; Visit Provider Family Medicine
DX: M25.511 Pain in right shoulder (principal); G89.29 Other chronic pain
CPT/HCPCS: 73030

== ENCOUNTER → 2024-07-18 09:18 | Outpatient (CLI) | payer OTHER, SELFPAY ==
[2024-04-10 17:06] VITALS: BMI 21.6
[2024-07-18 10:12] LABS: Hematocrit 41.2 % (41-53); Hemoglobin 13.9 g/dL (13.5-17.5); Mean Corpuscular HGB Conc 33.7 % (30-36); Mean Corpuscular Hemoglobin 32.8 PG (26-34); Mean Corpuscular Volume 97.3 fL (80-100); Platelet Count 222 X10^3/uL (150-400); Red Blood Cell Count 4.24 X10^6/uL (4.5-5.9); Red Cell Distribution Width 13.6 % (11.6-14.8)
[2024-07-18 10:41] LABS: Alanine Aminotransferase 17 IU/L (<50); Albumin 4.4 g/dL (3.5-5.0); Albumin Globulin Ratio 1.8 (1.0-2.8); Alkaline Phosphatase 63 U/L (38-126); Aspartate Aminotransferase 24 IU/L (17-59); BUN Creatinine Ratio 17.6 (6-22); Bilirubin Total 0.6 mg/dL (0.2-1.3); Blood Urea Nitrogen 13 mg/dL (9-20); Calcium 8.9 mg/dL (8.4-10.2); Carbon Dioxide 27 mmol/L (22-32); Chloride 104 mmol/L (98-107); Cholesterol 214 mg/dL (140-199); Estimated Glomerular Filt Rate > 60 mL/min (>60); Globulin 2.4 g/dL (1.7-4.1); Glucose 81 mg/dL (80-110); HDL Cholesterol 44 mg/dL (40-60); HEMOLYSIS < 15 (0-50); LDL Cholesterol Calculated 147 mg/dL (<100); Potassium 4.4 mmol/L (3.4-5.1); Sodium 137 mmol/L (137-145); Total Protein 6.8 g/dL (6.3-8.2); Triglycerides 113 mg/dL (35-150)
[2024-07-18 11:13] LABS: Ferritin 23 ng/mL (18-464)
[2024-07-18 11:18] LABS: TSH w/ Reflex to FT4 0.78 uIU/mL (0.47-4.68)
== END ==
PROVIDERS: PCP Family Medicine; Referring Provider Family Medicine; Visit Provider Family Medicine
DX: R20.2 Paresthesia of skin (principal); E78.5 Hyperlipidemia, unspecified; I10 Essential (primary) hypertension; Z83.49 Family history of other endocrine, nutritional and metabolic diseases; M79.601 Pain in right arm
CPT/HCPCS: 36415; 80053; 80061; 82728; 84443; 85027

== ENCOUNTER 2024-08-31 08:41 | Emergency (ER) | payer OTHER, SELFPAY ==
[2024-04-10 17:06] VITALS: BMI 21.6
[2024-08-31] VITALS (8 sets, daily range): BP systolic 146–168; BP diastolic 85–106; PULSE 58–69; RESP 16; TEMP 36.7; O2SAT 96–99; BMI 20.8
[2024-08-31 08:56] LABS: Appearance Urine UA CLOUDY; Bilirubin Urine UA 1+ (NEGATIVE); Color Urine UA BROWN; Glucose Urine UA NEGATIVE (Negative); Ketones Urine UA TRACE (NEGATIVE); Leukocyte Esterase Urine UA TRACE (NEGATIVE); Nitrite Urine UA POSITIVE (Negative); Occult Blood Urine UA 3+ (Negative); Protein Urine UA 2+ (Negative); Specific Gravity Urine UA 1.025 (1.000-1.035)
[2024-08-31 08:58] LABS: Ictotest Urine Negative (Negative); Urine Volume 10mL (spun)
[2024-08-31 08:59] LABS: Bacteria Urine Many (>30); Culture Indicated Urine Specimen Cultured; RBC Urine >100/HPF (0-5/HPF); Squamous Epithelial Cell Urine None Seen (0-5/HPF); WBC Urine 5-10/HPF (0-5/HPF)
--- NOTE | 2024-08-31 09:18 | ED_ITS ---
HPI - Male Genitourinary General Chief complaint: Urogenital-Male Stated complaint: Blood in Urine Time Seen by Provider: 08/31/24 09:15 History of Present Illness HPI Narrative: Patient is 64-year-old male history of bipolar depression GERD hernia repair and hypertension presenting today with blood in urine. Reports that he had intercourse last night and used a cock ring.He had no issues has no pain but immediately after did notice some darkened urine. This morning he reports that it was bright red it now seems to be dark. He has no abdominal pain no back pain no nausea or vomiting. He reports some muscle tremors which have been ongoing for a couple of months. He denies any strenuous activity but does report he has tremors in his legs pretty severely at nighttime even his partner reports pretty severe shaking. Related Data Previous Rx's Medication Instructions Recorded cephalexin 500 mg capsule 500 mg PO BID 7 days #14 caps 08/31/24 Allergies Allergy/AdvReac Type Severity Reaction Status Date / Time venom-wasp Allergy Severe swelling Verified 08/29/24 08:32 codeine Allergy Intermediate HIVES Verified 08/29/24 08:32 divalproex sodium Allergy Intermediate rash Verified 08/29/24 08:32 [From Depakote] omeprazole Allergy Intermediate HIVES Verified 08/29/24 08:32 venom-honey bee Allergy Mild SWELLING Verified 08/29/24 08:32 [bee venom (honey bee)] Patient History Medical History (Updated 08/31/24 @ 10:31 by Glendy Madison DO) Sensorineural hearing loss (SNHL) of both ears Attention deficit disorder (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 Paresthesia and pain of both upper extremities Family history of hemochromatosis Chronic right shoulder pain Inguinal hernia Migraines (~1982) Essential hypertension (05/13/15) Cardiac arrhythmia (04/16/14) Ulnar nerve compression History of bipolar disorder Hiatal hernia Homicidal ideation Depression GERD (gastroesophageal reflux disease) Sinusitis Screening for colon cancer Stomach ulcer Neuropathy Finger injury Peptic ulcer disease GERD (gastroesophageal reflux disease) Asthma Hay fever Seasonal allergies Depression (~2009) Headache (~1982) Shoulder pain Fractures (~2007) Foot pain (~2009) Genital herpes (~1999) Hepatitis C (~2008) Fast heart beat (~2013) Multiple neurological symptoms (03/27/15) Chronic hepatitis C without hepatic coma Surgical History History of repair of hiatal hernia (~01/2024) History of surgery (1997) Status post colonoscopy (~10/2008) Family History Father No problems noted. Social History household members: significant other alcohol intake: former substance use type: marijuana alcohol intake frequency: holidays/special occasions only Exam Initial Vital Signs Initial Vital Signs: Vital Signs Pulse Rate 69 08/31/24 08:47 Blood Pressure 168/94 H 08/31/24 08:47 Pulse Oximetry 99 08/31/24 08:47 GENERAL: Alert very well-appearing 64-year-old and in no acute distress. HEENT: Head atraumatic,EOMI, pupils reactive, face symmetric, moist mucous membranes CARDIOVASCULAR: Regular rate and rhythm without murmurs, rubs or gallops. RESPIRATORY: Breath sounds equal bilaterally, no wheezes rales or rhonchi. ABDOMEN: Soft, nontender. Normoactive bowel sounds all 4 quadrants. No guarding or rebound. : no cva tenderness, Carmelo RN in room for exam, no blood at meatus no evidence of trauma EXTREMITIES: Normal range of motion, no clubbing or edema. Neurovascularly intact NEUROLOGICAL: Alert and oriented x4.Normal gait and speech. Cranial nerves II through XII grossly intact. SKIN: Warm, dry, no laceration, no petechiae, no rashes or lesions. Course Orders Ordered: ED Orders 08/31/24 08:43 Ictotest Urine Stat Urinalysis and Microscopic Stat Urine Culture Stat 08/31/24 09:55 BMP [Basic Metabolic Panel] Stat CBC Auto Diff [Complete Blood Count AUTO DIFF] Stat CPK [Creatine Kinase] Stat Discontinued Medications Sodium Chloride (Normal Saline 0.9%) 1,000 mls @ 1,000 mls/hr IV BOLUS ONE Stop: 08/31/24 10:39 Last Infusion: 08/31/24 10:44 Dose: Infused Documented By: Admin: 08/31/24 09:59 Dose: 1,000 mls/hr Documented By: ALAN Vital Signs Vital signs: Vital Signs - 8 hr 08/31/24 08:47 08/31/24 08:47 08/31/24 08:53 Temperature 98.1 F Pulse Rate 69 66 Respiratory Rate 16 Blood Pressure 168/94 H 168/94 H Pulse Oximetry 99 99 Oxygen Delivery Method Room Air 08/31/24 09:00 08/31/24 09:04 08/31/24 09:04 Temperature Pulse Rate 64 64 Respiratory Rate Blood Pressure 146/85 H Pulse Oximetry 97 97 Oxygen Delivery Method 08/31/24 09:15 08/31/24 09:15 08/31/24 09:30 Temperature Pulse Rate 64 63 Respiratory Rate Blood Pressure 151/93 H Pulse Oximetry 96 97 Oxygen Delivery Method 08/31/24 10:00 08/31/24 10:30 Temperature Pulse Rate 58 L 66 Respiratory Rate Blood Pressure 163/106 H Pulse Oximetry 97 99 Oxygen Delivery Method MDM - Male Genitourinary Lab Data 08/31/24 09:55 08/31/24 09:55 Labs: Lab Results 08/31/24 08/31/24 Range/Units 08:43 09:55 WBC 7.7 (4.5-11.0) X10^3/uL RBC 4.32 L (4.5-5.9) X10^6/uL Hgb 14.2 (13.5-17.5) g/dL Hct 41.8 (41-53) % MCV 96.7 (80-100) fL MCH 32.8 (26-34) PG MCHC 33.9 (30-36) % RDW 14.0 (11.6-14.8) % Plt Count 216 (150-400) X10^3/uL Neut % (Auto) 70.3 (50-75) % Lymph % (Auto) 14.0 L (25-40) % Woodward % (Auto) 8.6 (3-14) % Eos % (Auto) 6.3 H (2-4) % Baso % (Auto) 0.8 (0-2) % Neut # (Auto) 5400 (0230-7692) /uL Lymph # (Auto) 1100 (4133-6208) /uL Woodward # (Auto) 700 (0-900) /uL Eos # (Auto) 500 H (0-450) /uL Baso # (Auto) 100 (0-100) /uL Sodium 137 (137-145) mmol/L Potassium 4.1 (3.4-5.1) mmol/L Chloride 105 (98-107) mmol/L Carbon Dioxide 25 (22-32) mmol/L BUN 20 (9-20) mg/dL Creatinine 0.74 (0.66-1.25) mg/dL Estimated GFR > 60 (>60) mL/min BUN/Creatinine Ratio 27.0 H (6-22) Glucose 101 (80-110) mg/dL Calcium 9.1 (8.4-10.2) mg/dL Total Creatine Kinase 392 H (55-170) U/L Urine Color Brown Urine Appearance Cloudy Urine pH 5.0 (4.5-8.0) Ur Specific [place] 1.025 (1.000-1.035) Urine Protein 2+ H (Negative) Urine Glucose (UA) Negative (Negative) g/dL Urine Ketones Trace H (NEGATIVE) Urine Occult Blood 3+ H (Negative) Urine Nitrate Positive H (Negative) Urine Bilirubin 1+ H (NEGATIVE) Ur Bilirubin Confirm Negative (Negative) Urine Urobilinogen 1.0 (0.2) E.U./dL Ur Leukocyte Esterase Trace H (NEGATIVE) Urine RBC >100/hpf H (0-5/HPF) Urine WBC 5-10/hpf H (0-5/HPF) Ur Squamous Epith Cells None seen (0-5/HPF) Urine Bacteria Many (>30) H (None) Ur Culture Indicated? Specimen cultured Vol Urine Centrifuged 10ml (spun) MDM Narrative Medical decision making narrative: Patient is 64-year-old male presenting today with hematuria. He was positive for blood nitrates leukocytes and bacteria concerning for UTI. He is not septic vitals are stable no leukocytosis. No evidence of rhabdomyolysis. I suspect micro trauma from intercourse with sex toy. The penis itself does not show any evidence of severe trauma there is no blood at the meatus. He has been urinating it is nonpainful. At this time recommend increase fluids we will treat for UTI. Discharge Plan Departure Patient Disposition: Home Clinical Impression: Acute UTI, Hematuria Instructions: DI for Urinary Tract Infection (UTI), DI for Hematuria Activity Restrictions/Additional Instructions: *You have been diagnosed with UTI *What to do: At this time please stay hydrated with water make sure eating appropriately. I suspect your urine will start to clear *Continue to take medications as directed Keflex 500 mg twice a day for 7 days--> [facility] *Follow up with your primary care provider in 2-3 days or call [phone] *Return to ER if you should have [place] blood inability to urinate or any new, worsening or concerning symptoms Prescriptions: New cephalexin 500 mg capsule 500 mg PO BID 7 Days Qty: 14 0RF Referrals: Paradise Gonzales DO [Primary Care Provider] - Stand Alone Forms: Patient Portal/API/Survey
[2024-08-31] MEDS: SODIUM CHLORIDE 0.9% 1,000 ML 1000 ML IV (09:59)
[2024-08-31 10:02] LABS: Add Manual Diff / Slide Review NO; Basophils Absolute Auto 100 /uL (0-100); Basophils Percent Auto 0.8 % (0-2); Eosinophils Absolute Auto 500 /uL (0-450); Eosinophils Percent Auto 6.3 % (2-4); Hematocrit 41.8 % (41-53); Hemoglobin 14.2 g/dL (13.5-17.5); Lymphocytes Absolute Auto 1100 /uL (1100-4500); Mean Corpuscular HGB Conc 33.9 % (30-36); Mean Corpuscular Hemoglobin 32.8 PG (26-34); Mean Corpuscular Volume 96.7 fL (80-100); Monocytes Absolute Auto 700 /uL (0-900); Monocytes Percent Auto 8.6 % (3-14); Neutrophils Absolute Auto 5400 /uL (1500-7000); Neutrophils Percent Auto 70.3 % (50-75); Platelet Count 216 X10^3/uL (150-400); Red Blood Cell Count 4.32 X10^6/uL (4.5-5.9); White Blood Cell Count 7.7 X10^3/uL (4.5-11.0)
[2024-08-31 10:16] LABS: Blood Urea Nitrogen 20 mg/dL (9-20); Calcium 9.1 mg/dL (8.4-10.2); Carbon Dioxide 25 mmol/L (22-32); Chloride 105 mmol/L (98-107); Creatine Kinase 392 U/L (55-170); Estimated Glomerular Filt Rate > 60 mL/min (>60); Glucose 101 mg/dL (80-110); HEMOLYSIS < 15 (0-50); Potassium 4.1 mmol/L (3.4-5.1); Sodium 137 mmol/L (137-145)
== END 2024-08-31 10:48 | disposition home or self-care (01) ==
PROVIDERS: Emergency Provider Emergency Medicine; PCP Family Medicine
DX: N39.0 Urinary tract infection, site not specified (principal); R31.9 Hematuria, unspecified
CPT/HCPCS: 36415; 80048; 81001; 82550; 85025; 87086; 96360; 99284

== ENCOUNTER → 2024-09-05 09:31 | Outpatient (CLI) | payer OTHER, SELFPAY ==
[2024-09-03 12:51] VITALS: BMI 21.6
--- NOTE | 2024-09-05 09:31 | DI.US.S_ITS ---
PROCEDURE: US ABD AORTA ANEURYSM SCREEN INDICATIONS: Aorta Aneurysm Screening, PMHX former smoker TECHNIQUE: Real time scanning was performed of the aorta and iliac arteries, with image documentation. COMPARISON: CT of abdomen and pelvis dated 08/29/2014. FINDINGS: Aorta: Proximal aortic diameter measures 2.7 cm. Mid-aorta measures 1.9 cm. Distal aortic diameter is 1.7 cm. Iliac arteries: Right common iliac artery measures 1.1 cm. Left common iliac artery measures 1.1 cm. IMPRESSION: No abdominal aortic aneurysm. Mild atherosclerotic plaques seen in abdominal aorta. Follow-up study in 5 years is recommended. Dictated by: Madi Villalobos M.D. on 09/05/2024 at 13:11 Approved by: Madi Villalobos M.D. on 09/05/2024 at 13:12
== END ==
PROVIDERS: PCP Family Medicine; Referring Provider Family Medicine; Visit Provider Family Medicine
DX: I49.9 Cardiac arrhythmia, unspecified (principal); Z87.891 Personal history of nicotine dependence; Z13.6 Encounter for screening for cardiovascular disorders; I70.0 Atherosclerosis of aorta
CPT/HCPCS: 76706

== ENCOUNTER 2024-10-04 14:39 | Emergency (ER) | payer OTHER, SELFPAY ==
[2024-09-03 12:51] VITALS: BMI 21.6
[2024-10-04 14:52] VITALS: BP 120/75; PULSE 66; RESP 16; TEMP 36.6; O2SAT 97; BMI 20.8
--- NOTE | 2024-10-04 14:58 | DI.RAD.S_ITS ---
PROCEDURE: XR SHOULDER RT MIN 2V INDICATIONS: swollen area/pain TECHNIQUE: 3 views of the shoulder were acquired. COMPARISON: [facility], CR, XR SHOULDER RT MIN 2V, 03/02/2023, 11:53. FINDINGS: Bones: No fractures or dislocations. No suspicious bony lesions. Visualized ribs appear intact. Soft tissues: No suspicious soft tissue calcifications. IMPRESSION: No visualized acute fracture or dislocation. However, if clinical concern and/or pain persist, short interval imaging followup in 7-10 days is recommended, as occult injury cannot be definitively excluded. Dictated by: Carina Ho M.D. on 10/04/2024 at 15:42 Approved by: Carina Ho M.D. on 10/04/2024 at 15:43
--- NOTE | 2024-10-04 15:48 | ED.UPPEXIN ---
HPI - Extremity Injury (Upper) <Dede Rodriguez PA-C - Last Filed: 10/04/24 16:36> General Chief Complaint: Extremity Injury, Upper Stated Complaint: Right shoulder pain 2 days Time Seen by Provider: 10/04/24 15:20 Source: patient Mode of arrival: Ambulatory History of Present Illness HPI narrative: Mr. Camp is a very pleasant 64-year-old male with a past medical history of hepatitis-C, GERD, hyperlipidemia who presents to the emergency department for right shoulder swelling x2 days. 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 When his saw him later that evening she noticed that his right shoulder is extremely swollen. Patient states he is having really minimal pain and he still has full range of motion however when he gets his arm all the way above his head he does feel a cracking sensation. He has swelling on the anterior right shoulder. He is right-hand dominant. No numbness, tingling, weakness, open wounds or limited range of motion. No prior surgery or hardware of the right shoulder. Related Data Allergies Allergy/AdvReac Type Severity Reaction Status Date / Time venom-wasp Allergy Severe swelling Verified 08/29/24 08:32 codeine Allergy Intermediate HIVES Verified 08/29/24 08:32 divalproex sodium Allergy Intermediate rash Verified 08/29/24 08:32 [From Depakote] omeprazole Allergy Intermediate HIVES Verified 08/29/24 08:32 venom-honey bee Allergy Mild SWELLING Verified 08/29/24 08:32 [bee venom (honey bee)] Review of Systems <Dede Rodriguez PA-C - Last Filed: 10/04/24 16:36> Review of Systems ROS Unobtainable: All systems reviewed & are unremarkable except as noted in HPI and below Patient History <Dede Rodriguez PA-C - Last Filed: 10/04/24 16:36> Medical History Sensorineural hearing loss (SNHL) of both ears Attention deficit disorder (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 Paresthesia and pain of both upper extremities Family history of hemochromatosis Chronic right shoulder pain Inguinal hernia Migraines (~1982) Essential hypertension (05/13/15) Cardiac arrhythmia (11/25/14) Ulnar nerve compression History of bipolar disorder Hiatal hernia Homicidal ideation Depression GERD (gastroesophageal reflux disease) Sinusitis Screening for colon cancer Stomach ulcer Neuropathy Finger injury Peptic ulcer disease GERD (gastroesophageal reflux disease) Asthma Hay fever Seasonal allergies Depression (~2009) Headache (~1982) Shoulder pain Fractures (~2007) Foot pain (~2009) Genital herpes (~1999) Hepatitis C (~2008) Fast heart beat (~2013) Multiple neurological symptoms (03/27/15) Chronic hepatitis C without hepatic coma Surgical History History of repair of hiatal hernia (~01/2024) History of surgery (1997) Status post colonoscopy (~10/2008) Family History Father No problems noted. Social History household members: significant other Smoking Status: Never smoker alcohol intake: former substance use type: marijuana Smoking Status: Never smoker alcohol intake frequency: holidays/special occasions only Exam <Dede Rodriguez PA-C - Last Filed: 10/04/24 16:36> Narrative Exam Narrative: GENERAL: 64 year old patient appears stated age. Well-developed patient, in no acute distress. HEAD: Atraumatic. Normocephalic. NECK: Trachea midline. Cervical ROM intact. CARDIOVASCULAR: Regular rate RESPIRATORY: ?Nonlabored respirations. ?Speaking in clear, full sentences. ?Clear to auscultation. EXTREMITIES: Diffuse edema of anterior right shoulder/humeral head region. No overlying erythema or increased warmth. Patient has full range of motion of the right shoulder, negative empty can test bilaterally, mild tenderness to palpation of the humeral head but minimal pain with exam overall. No focal tenderness to palpation of AC joint, humerus, elbow, forearm. There is some reported tenderness to palpation of the right scapula. Strong radial pulses bilaterally BACK: No midline spinal tenderness. NEURO: AOx3. ?Clear speech. ?Moves all 4 extremities appropriately. Sensation intact to light touch in the distribution ulnar, radial, median nerves bilaterally. SKIN: No rash or erythema of visible areas Initial Vital Signs Initial Vital Signs: Vital Signs Temperature 98 F 10/04/24 14:52 Pulse Rate 66 10/04/24 14:52 Respiratory Rate 16 05/15/25 14:52 Blood Pressure 120/75 10/04/24 14:52 Pulse Oximetry 97 10/04/24 14:52 Oxygen Delivery Method Room Air 10/04/24 14:52 <Low Aldridge MD - Last Filed: 10/09/24 10:29> Initial Vital Signs Initial Vital Signs: Vital Signs Temperature 98 F 10/04/24 14:52 Pulse Rate 66 10/04/24 14:52 Respiratory Rate 16 10/04/24 14:52 Blood Pressure 120/75 10/04/24 14:52 Pulse Oximetry 97 10/04/24 14:52 Oxygen Delivery Method Room Air 10/04/24 14:52 Course <Dede Rodriguez PA-C - Last Filed: 10/04/24 16:36> Orders Ordered: Discontinued Medications Ketorolac Tromethamine (Ketorolac 30 Mg/Ml Vial) 30 mg IM NOW ONE Stop: 10/04/24 16:08 Last Admin: 10/04/24 16:29 Dose: 30 mg Documented By: RB Vital Signs Vital signs: Vital Signs - 8 hr 10/04/24 14:52 Temperature 98 F Pulse Rate 66 Respiratory Rate 16 Blood Pressure 120/75 Pulse Oximetry 97 Oxygen Delivery Method Room Air <Low Aldridge MD - Last Filed: 10/09/24 10:29> Orders Ordered: Discontinued Medications Ketorolac Tromethamine (Ketorolac 30 Mg/Ml Vial) 30 mg IM NOW ONE Stop: 10/04/24 16:08 Last Admin: 10/04/24 16:29 Dose: 30 mg Documented By: RB Vital Signs Vital signs: Vital Signs - 8 hr 10/04/24 14:52 Temperature 98 F Pulse Rate 66 Respiratory Rate 16 Blood Pressure 120/75 Pulse Oximetry 97 Oxygen Delivery Method Room Air MDM - Extremity Injury (Upper) <NOA Kowalski Last Filed: 10/04/24 16:36> Medical Records Attestation: I reviewed the patient's medical records. Imaging Data Right Shoulder X-Ray: Radiologist's Impression: PROCEDURE: XR SHOULDER RT MIN 2V INDICATIONS: swollen area/pain TECHNIQUE: 3 views of the shoulder were acquired. COMPARISON: [facility], CR, XR SHOULDER RT MIN 2V, 03/02/2023, 11:53. FINDINGS: Bones: No fractures or dislocations. No suspicious bony lesions. Visualized ribs appear intact. Soft tissues: No suspicious soft tissue calcifications. IMPRESSION: No visualized acute fracture or dislocation. However, if clinical concern and/or pain persist, short interval imaging followup in 7-10 days is recommended, as occult injury cannot be definitively excluded. Dictated by: Carina Ho M.D. on 10/04/2024 at 15:42 Approved by: Carina Ho M.D. on 10/04/2024 at 15:43 [facility] Narrative Medical decision making narrative: 64-year-old male with a past medical history of hepatitis-C, GERD, hyperlipidemia who presents to the emergency department for right shoulder swelling x2 days. Differential diagnosis includes but not limited to right shoulder overuse injury, bursitis, sprain, strain, fracture, dislocation, etc. On exam patient is in no acute distress, nontoxic-appearing, all vital signs within normal limits. His bilateral upper extremities are neurovascularly intact. He does have diffuse edema of the anterior right shoulder but he is full range of motion and good strength. Right shoulder x-ray obtained revealing no visualized acute fracture or dislocation. This time I do suspect soft tissue injury vs bursitis. We will treat with Toradol and sling in the ED however I recommended that the patient remove the sling frequently to perform [id number] exercises of the right shoulder to prevent frozen shoulder. Encouraged sling only to use for comfort. Recommended rice therapy, ibu/apap, follow up with PCP who may refer to orthopedics if he has persistent symptoms. Discussed ED return precautions. Patient verbalized understanding of all information agreeable with the plan. He is stable for discharge home. Discharge Plan Departure Patient Disposition: Home Clinical Impression: Swelling of joint, shoulder, right, Overuse injury Instructions: DI for Bursitis, DI for Shoulder Sprain Activity Restrictions/Additional Instructions: Dear Mr. Camp, Thank you for coming to the emergency department. Today you were evaluated for right shoulder swelling. Your x-ray showed no fractures or dislocations. At this time I am concerned that your swelling is because of a soft tissue injury or bursitis. Please use ibuprofen or naproxen for pain. Please use RICE therapy for your pain in addition to ibuprofen/acetaminophen. Rest the painful area. Ice the area of pain/swelling for at least 15 minutes, 4x a day. Compress the area of swelling using a brace, wrap, or splint if applied. Elevate the painful or swollen extremity by supporting it above the level of the heart with pillows when sitting or laying. Follow up with your primary care doctor, if you have persistent symptoms they may refer you to orthopedic surgery. If you develop any new or worsening symptoms, fevers or concerns return to the ED. Please follow up with your primary care doctor within the next 2-3 days for ER follow-up. (If you do not have a PCP you can call [phone]. ?to schedule an appointment with an [facility] Primary Care Provider) IF YOU DEVELOP ANY NEW OR WORSENING SYMPTOMS, RETURN TO THE ER! Please read the attached instructions, they highlight more specific treatments and interventions for you at home. Thank you for letting me participate in your care, Dede Rodriguez PA-C Referrals: Paradise Gonzales DO [Primary Care Provider] - Stand Alone Forms: Patient Portal/API/Survey, Work Release Note ED Sign-out <Low Aldridge MD - Last Filed: 10/09/24 10:29> Cosign ED Attending Cosignature Attestation: I was immediately available in the department for consultation. ?This documentation has been reviewed and I agree with assessment and plan. Supervised by Low Aldridge MD
[2024-10-04] MEDS: KETOROLAC 30 MG/ML VIAL IM (16:29)
[2024-10-04 16:30] VITALS: BP 105/66; PULSE 53; RESP 13; TEMP 37.1; O2SAT 95
[2024-10-04 16:42] VITALS: PULSE 68
== END 2024-10-04 16:44 | disposition home or self-care (01) ==
PROVIDERS: Emergency Provider Physician Assistant; PCP Family Medicine
DX: M25.411 Effusion, right shoulder (principal); X50.9XXA Other and unspecified overexertion or strenuous movements or postures, initial encounter
CPT/HCPCS: 73030; 96372; 99283; 99284; J1885

== ENCOUNTER → 2025-02-06 12:43 | Outpatient (CLI) | payer OTHER, SELFPAY ==
[2024-09-03 12:51] VITALS: BMI 21.6
--- NOTE | 2025-02-06 12:46 | DI.MRI.S_ITS ---
PROCEDURE: MR SHOULDER RT WO CON INDICATIONS: r shoulder mass and pain TECHNIQUE: Noncontrast oblique coronal T2 fast spin echo with fat saturation, oblique sagittal T1 spin echo and T2 fast spin echo with fat saturation, axial T1 spin echo and T2 fast spin echo with fat saturation through the shoulder. COMPARISON: [facility], CR, XR SHOULDER RT 2+ VIEWS, 10/04/2024, 14:59. FINDINGS: Quality: Adequate. Tendons: Rotator cuff tendons: Full-thickness full width supraspinatus tendon tear from the insertion with retraction to the mid humeral head. Full-thickness partial width tear of the anterior fibers of the infraspinatus tendon. Teres minor tendon is intact. Near full-thickness interstitial an articular sided tear of the insertional superior 2/3 of the subscapularis tendon. Long head of biceps tendon: Interstitial tearing within the rotator interval. Medial subluxation. Muscles: Less than 50 percent fatty degeneration of infraspinatus muscle. Acromioclavicular joint: Moderate acromioclavicular degenerative change. Glenohumeral joint: Labrum: Diffuse labral degeneration. Cartilage: Multifocal deep cartilage defect along the superior humeral head. Fluid: No effusion. Capsule: No pericapsular inflammation or scarring. Alignment: No dislocation. Bursa: Subacromial/subdeltoid bursa: Trace fluid. Subcoracoid bursa: Nondistended. Bones: No fracture. Other: Deep to the deltoid along the anterior and lateral shoulder possibly partially within the anterior deltoid muscle is a fatty mass measuring greater than 9.7 x 8.9 by 3.2 centimeter. No thick septal component or nodular component but more heterogenous than normal subcutaneous fat. 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 Full-thickness full width supraspinatus tendon tear. Full-thickness partial width infraspinatus tendon tear. Near full-thickness subscapularis tendon tear. Partial long head biceps tendon tear. Acromioclavicular and glenohumeral osteoarthritis. Dictated by: Roger Collins M.D. on 02/06/2025 at 14:13 Approved by: Roger Collins M.D. on 02/06/2025 at 14:27
== END ==
LOC: MRI 12:44
PROVIDERS: PCP Family Medicine; Referring Provider Orthopaedic Surgery; Visit Provider Orthopaedic Surgery
DX: M75.121 Complete rotator cuff tear or rupture of right shoulder, not specified as traumatic (principal); M19.011 Primary osteoarthritis, right shoulder; S46.111A Strain of muscle, fascia and tendon of long head of biceps, right arm, initial encounter; M25.411 Effusion, right shoulder; D17.9 Benign lipomatous neoplasm, unspecified
CPT/HCPCS: 73221